=== PATIENT | female | born 1985 | race Caucasian/White ===

== ENCOUNTER → 2024-03-31 | Outpatient (CLI) | payer OTHER, MEDICAID, SELFPAY ==
[2024-03-31 10:00] LABS: Misc Send Out* See Sep Rpt
[2024-03-31 10:44] LABS: Basophils % (Auto) 1 % (0-2.5); Eosinophils % (Auto) 1 % (0-10); Hematocrit 38.9 % (36.0-46.0); Hemoglobin 13.6 g/dL (12.0-16.0); Immature Granulocytes % (Auto) 0 % (0-0); Immature Granulocytes Auto 0.01 Thou/mm3 (0.00-0.00); Lymphocytes # (Auto) 1.3 Thou/mm3 (1.0-4.8); Lymphocytes % (Auto) 23 % (10-50); Mean Corpuscular Hemoglobin 31.2 pg (25.0-35.0); Mean Corpuscular Volume 89 fL (80-100); Monocytes # (Auto) 0.4 Thou/mm3 (0.0-0.8); Monocytes % (Auto) 7 % (0-12); Neutrophils # (Auto) 3.8 Thou/mm3 (1.8-7.7); Neutrophils % (Auto) 69 % (37-80); Nucleated Red Blood Cell % 0 /100 WBC (0); Platelet Count 243 Thou/mm3 (140-440); RDW Standard Deviation 39.4 fL (36.4-46.3); Red Blood Count 4.36 Miln/mm3 (4.00-5.20); White Blood Count 5.6 Thou/mm3 (3.6-11.0)
[2024-03-31 10:53] LABS: Misc Send Out* See Sep Rpt
[2024-03-31 11:26] LABS: Alanine Aminotransferase 23 U/L (10-49); Albumin, Serum 4.6 gm/dL (3.5-5.0); Albumin/Globulin Ratio 1.8 (1.2-2.2); Alkaline Phosphatase 95 U/L (46-116); Anion Gap 5 (7-16); Aspartate Amino Transferase 19 U/L (0-34); BUN/Creatinine Ratio 15 Ratio (12-20); Bilirubin,Total 0.7 mg/dL (0.3-1.2); Blood Urea Nitrogen 12 mg/dL (9-23); C-Reactive Protein < 0.4 mg/dL (0.0-0.9); Calcium 9.5 mg/dL (8.3-10.6); Calcium (Corrected) 9.5 mg/dL (8.5-10.1); Carbon Dioxide 26.9 mMol/L (20.0-31.0); Chloride 107 mMol/L (98-107); Creatine Kinase 53 U/L (34-171); Creatinine (Component) 0.8 mg/dL (0.6-1.3); Globulin 2.6 gm/dL (2.3-3.5); Glucose 81 mg/dL (74-106); Osmolality,Calculated 276 (275-295); Sodium 139 mMol/L (136-145); Total Protein 7.2 gm/dL (5.7-8.2); eGFR > 60 See Note
[2024-03-31 11:36] LABS: Sed Rate (ESR) 4 mm/hr (0-20)
[2024-03-31 18:13] LABS: RA Screen Negative (Negative)
== END | disposition home or self-care (01) ==
LOC: COPL 09:22
PROVIDERS: PCP Family Medicine; Referring Provider Nurse Practitioner; Visit Provider Nurse Practitioner
DX: M35.3 Polymyalgia rheumatica (principal)
CPT/HCPCS: 36415; 80053; 82550; 85025; 85652; 86038; 86140; 86200; 86430

== ENCOUNTER 2024-04-13 20:18 | Inpatient (IN) | payer OTHER, MEDICAID, SELFPAY ==
[2024-04-13 20:18] VITALS: BP 121/73; PULSE 75; RESP 18; TEMP 36.6; O2SAT 99
[2024-04-13 20:22] VITALS: BMI 23.5
--- NOTE | 2024-04-13 20:25 | EDNOTE_ITS ---
ED General RME/HPI General Chief complaint: Abdominal Pain Stated complaint: ABD PAIN Time Seen by Provider: 04/13/24 20:24 Arrival date/time: 04/13/24 20:18 CC: Upper abdominal pain HPI onset at 5 PM with progressive increase in severity band pain across the upper abdomen with penetration straight into the back. 8-9 on a 10 scale not relieved with [id number] Tylenol EMS gives the patient 75 mcg of fentanyl which relieves the pain significantly. The patient is mildly nauseated but has no active vomiting. History of cholecystectomy 2020. Has a history of band pain occurring once in a great while last episode was 2 months ago. Patient's medications include gabapentin Tylenol with codeine and antianxiety medication. Related Data Home Medications ?Medication ?Instructions ?Recorded ?Confirmed acetaminophen 300 mg-codeine 30 mg 1 tab PO BID PRN Pain 04/14/24 04/14/24 tablet acetaminophen 325 mg tablet 325 mg PO QID PRN Pain 04/14/24 04/14/24 buspirone 15 mg tablet 15 mg PO HS 04/14/24 04/14/24 clorazepate dipotassium 15 mg 15 mg PO HS 04/14/24 04/14/24 tablet famotidine 20 mg tablet 20 mg PO QDAY 04/14/24 04/14/24 gabapentin 100 mg capsule 300 mg PO HS 04/14/24 04/14/24 ibuprofen 400 mg tablet 400 mg PO Q4HR PRN Pain 04/14/24 04/14/24 levothyroxine 50 mcg tablet 50 mcg PO QAM 04/14/24 04/14/24 Allergies Allergy/AdvReac Type Severity Reaction Status Date / Time caffeine Allergy Severe Difficulty Verified 11/26/17 04:07 Breathing ergotamine Allergy Severe Difficulty Verified 11/26/17 04:08 Breathing sumatriptan Allergy Severe Difficulty Verified 11/26/17 04:08 Breathing topiramate [From Topamax] Allergy Severe Difficulty Verified 11/26/17 04:07 Breathing Review of Systems Review of Systems Narrative Review of Systems: GEN: No fever, no chills, no weight loss EYES: No discharge, no visual changes, no pain HEENT: No ear pain, no congestion, no sore throat PULM: No shortness of breath, no cough, no congestion CV: No chest pain, no dyspnea on exertion, no palpitations GI: No nausea, no vomiting, no diarrhea, + pain, no constipation : No frequency, no urgency, no dysuria MUSC/SKEL: No joint pain, no back pain SKIN: No rash PSYCH: No hallucinations, no depression HEME/LYMPH: No easy bleeding or bruising tendencies NEURO: No weakness, no headache Past Medical History Past Medical History NEUROLOGIC: Positive Neurological Disorders and Migraine CARDIAC: Negative Cardiac Disorders or Congestive Heart Failure RESPIRATORY: Positive Asthma; Negative Chronic Obstructive Pulmonary Disease (COPD) GASTROINTESTINAL: Negative Gastrointestinal Disorders GENITOURINARY: Positive Genitourinary Disorders (hx uti's); Negative Renal Disease REPRODUCTIVE: Negative Pelvic Inflammatory Disease MUSCULOSKELETAL: Negative Musculoskeletal Disorders ENDOCRINE: Negative Endocrine Disorders, Diabetes Mellitus Type 1 or Diabetes Mellitus Type 2 HEMATOLOGIC: Negative Blood Disorders PSYCHO/SOCIAL: Positive Depression and Anxiety OTHER HISTORY: Positive Chicken Pox; Negative Autoimmune Disease Family History FAMILY HISTORY: Positive Family Psychiatric Problems (mother.father-depression, anxiety.), Family Respiratory Disorders (mother,father, brothers sisters- asthma), Family Cardiac Disorders (mother and father), Family Gastrointestinal Problems (mother, father -ulcers, gallbladders removed.) and Family Surgery (mother-hysterectomy); Negative Family Cancer or Family Anesthesia Reaction Surgical History SURGICAL: Negative Section Social History SMOKING STATUS: Former smoker SECOND HAND EXPOSURE: No ED Exam Narrative Physical exam: [General: Mild discomfort but not in any acute distress Head normocephalic HEENT: Within acceptable limits Neck is supple nontender Chest equal chest rise nontender to palpation Respiratory: Clear to auscultation no wheezes crackles or rubs CV: Rate rhythm is regular no murmurs rubs or clicks Abdomen is soft, mild tenderness in the upper abdomen, no lower abdominal pain. Back: No CVA tenderness no spinous process tenderness from cervical spine thoracic and lumbar spine Skin: Intact no petechiae rash induration ulceration or crepitus Extremities: Moving all extremity against resistance cap refill less than 2 seconds neurosensory intact Neuro: Awake alert oriented x3 Glascow coma 15 no focal deficits] Course Quality Measures none Orders Category Date Time Status COVID-19 Screening Questionnaire NOW Care 04/14/24 01:[address] Screening NOW Care 04/13/24 23:02 Active Decision to Admit X1 Care 04/14/24 01:[address] abdomen pelvis w con Stat Exams 04/13/24 23:02 Completed CBC Stat Lab 04/13/24 20:43 Completed CMP [Comprehensive Metabolic Panel] Stat Lab 04/13/24 21:42 Completed HCG Qualitative,Urine Stat Lab 04/13/24 20:32 Completed LDH (Lactate Dehydrogenase) Stat Lab 04/13/24 21:42 Completed Lipase Stat Lab 04/13/24 21:42 Completed Lipid Panel Stat Lab 04/13/24 21:42 Completed Urinalysis Stat Lab 04/13/24 20:32 Completed Famotidine Inj [Pepcid Inj] Med 04/13/24 21:49 Discontinued 20 mg IVP X1 ONE Lidocaine 2% Viscous [Xylocaine 2% Viscous] Med 04/13/24 20:24 Discontinued 15 ml PO X1 ONE Morphine Inj Med 04/13/24 23:24 Hold 4 mg IVP Q1H PRN Morphine Inj [Morphine Sulf Inj] Med 04/13/24 23:07 Discontinued 4 mg IVP Q1H PRN Ondansetron Inj [Zofran Inj] Med 04/13/24 23:17 Discontinued 2 mg IV X1 ONE Ondansetron Inj [Zofran Inj] Med 04/13/24 23:07 Discontinued 4 mg IV X1 ONE Sodium Chloride 0.9% 1000 ml [Ns] 1,000 ml Med 04/14/24 02:57 Discontinued IV 200 mls/hr mg Hyd/Al Hyd/Bettye Susp [Maalox Susp] Med 04/13/24 20:24 Discontinued 30 ml PO X1 ONE Vital Signs Vital signs: Vital Signs Temperature 97.8 F 04/13/24 20:18 Pulse Rate 75 04/13/24 20:18 Respiratory Rate 18 04/13/24 20:18 Blood Pressure 121/73 04/13/24 20:18 Pulse Oximetry (%) 99 04/13/24 20:18 Oxygen Delivery Method Room Air 04/13/24 20:18 [facility] Patient data External records reviewed:: [facility] previous records and EMS form Clinical information provided by:: patient and EMS Social determinants that could affect healthcare access:: none Patient has the following chronic illnesses:: Chronic leg pain, anxiety How is presenting disease/condition affected by chronic disease/condition?: u neffected by Evaluation data The following diagnostics were reviewed and interpreted by me:: lab results Lab and/or radiology exams considered but not ordered:: CBC shows leukocytosis of 14.5 no anemia thrombocytopenia CMP shows no significant electrolyte imbalances no renal impairment however there is transaminitis with an elevated T. bili Lipase is greater than 2000. Interpretation Summary: Pancreatitis. The patient's case discussed with send care assumed by Dr. Majano. Patient informed of her condition, and she is in agreement for admission for further medical management. Medications Medications considered but not ordered:: None Medication administrations:: Medication Administration History Acetaminophen (Acetaminophen 325 Mg Tablet) 650 mg PO Q6H PRN PRN Reason: PAIN SCALE 1-3 (mild Stop: 05/14/24 03:14 Hydrocodone Bitart/Acetaminophen (Hydrocodone/Apap 10/325 Tab) 1 tab PO Q4H PRN PRN Reason: PAIN SCALE 4-6 (Moderate Stop: 04/19/24 03:14 Last Admin: 04/14/24 06:18 Dose: 1 tab Documented By: DARSHAN Buspirone HCl (Buspirone Hcl 5 Mg Tablet) 15 mg PO QDAY [facility] Stop: 05/14/24 08:59 Last Admin: 04/14/24 09:59 Dose: 15 mg Documented By: JARAD Gabapentin (Gabapentin 100 Mg Capsule) 100 mg PO TID PRN PRN Reason: Leg Pain Stop: 05/14/24 05:59 Sodium Chloride (Ns) 1,000 mls @ 250 mls/hr IV .Q4H MARTIN Stop: 05/14/24 08:38 Ceftriaxone Sodium/Dextrose (Rocephin/D5w 1gm Iv Premix) 50 mls @ 100 mls/hr IV QDAY [facility] Stop: 04/21/24 11:09 Levothyroxine Sodium (Levothyroxine Sodium 25 Mcg Tablet) 50 mcg PO ACBR MARTIN Stop: 05/14/24 05:59 Last Admin: 04/14/24 06:18 Dose: 50 mcg Documented By: DARSHAN Morphine Sulfate (Morphine Sulf Inj 10 Mg/Ml Vial) 4 mg IVP Q1H PRN PRN Reason: PAIN Last Admin: 04/13/24 23:40 Dose: 4 mg Documented By: CB Morphine Sulfate (Morphine Sulf Inj 10 Mg/Ml Vial) 1 mg IVP Q4HR PRN PRN Reason: PAIN SCALE 7-10 (Severe Stop: 04/19/24 03:14 Last Admin: 04/14/24 10:52 Dose: 1 mg Documented By: Admin: 04/14/24 04:35 Dose: 1 mg Documented By: DARSHAN Ondansetron HCl (Ondansetron Inj 2 Mg/Ml Inj 2 Ml) 4 mg IV Q6H PRN; Protocol PRN Reason: NAUSEA OR VOMITING Stop: 05/14/24 03:14 Last Admin: 04/14/24 04:35 Dose: 4 mg Documented By: DARSHAN Sennosides (Senna Tablet) 1 tab PO QDAY PRN; Protocol PRN Reason: constipation Stop: 05/14/24 03:14 Discontinued Medications Al Hydrox/Mg Hydrox/Simethicone (Mg Hyd/Al Hyd/Bettye (Maalox Reg) Susp 30 Ml Udc) 30 ml PO X1 ONE Stop: 04/13/24 20:25 Last Admin: 04/13/24 20:39 Dose: 30 ml Documented By: KG Famotidine (Famotidine Inj 10 Mg/Ml Vial 2 Ml) 20 mg IVP X1 ONE Stop: 04/13/24 21:50 Last Admin: 04/13/24 21:59 Dose: 20 mg Documented By: DARSHAN Gabapentin (Gabapentin 100 Mg Capsule) 100 mg PO TID MARTIN Stop: 05/14/24 05:59 Sodium Chloride (Ns) 1,000 mls @ 200 mls/hr IV .Q5H ONE Stop: 04/14/24 07:56 Last Admin: 04/14/24 03:19 Dose: 200 mls/hr Documented By: DARSHAN Sodium Chloride (Ns) 1,000 mls @ 999 mls/hr IV .Q1H1M ONE Stop: 04/14/24 09:39 Last Admin: 04/14/24 09:59 Dose: 999 mls/hr Documented By: JARAD Sodium Chloride (Ns) 500 mls @ 999 mls/hr IV .Q31M ONE Stop: 04/14/24 09:10 Lidocaine HCl (Lidocaine Viscous 2% 15 Ml Udc) 15 ml PO X1 ONE Stop: 04/13/24 20:25 Last Admin: 04/13/24 20:39 Dose: 15 ml Documented By: KG Morphine Sulfate (Morphine Sulf Inj 4 Mg/Ml Vial) 4 mg IVP Q1H PRN PRN Reason: PAIN Ondansetron HCl (Ondansetron Inj 2 Mg/Ml Inj 2 Ml) 4 mg IV X1 ONE; Protocol Stop: 04/13/24 23:08 Last Admin: 04/13/24 23:18 Dose: Not Given Documented By: DARSHAN Non-Admin Reason: Duplicate Medication on eMAR Ondansetron HCl (Ondansetron Inj 2 Mg/Ml Inj 2 Ml) 2 mg IV X1 ONE; Protocol Stop: 04/13/24 23:18 Last Admin: 04/13/24 23:40 Dose: 2 mg Documented By: DARSHAN Potassium Chloride (Potassium Chloride 20 Meq Tabcr) 40 meq PO X1 ONE Stop: 04/14/24 04:18 Last Admin: 04/14/24 04:30 Dose: 40 meq Documented By: DARSHAN None Consultations Consultation(s) initiated? (list below): No Diagnosis Differential Diagnosis ED Complaint MDM: Pancreatitis ascending cholangitis Most likely diagnosis given after review of the tests above:: Pancreatitis Admission Indicated Admission indicated?: indicated Explain why admission is indicated or not indicated:: Quires further medical management Admission Request Was there a request for admission?: No Disposition Plan Disposition Plan: Admit Medical Decision Making Differential Diagnosis Differential Diagnosis: Pancreatitis ascending cholangitis Lab Data 04/14/24 04:35 04/14/24 04:35 Labs: Lab Results 04/13/24 04/13/24 04/13/24 Range/Units 20:32 20:43 21:42 WBC 14.5 H (3.6-11.0) Thou/mm3 RBC 4.69 (4.00-5.20) Miln/mm3 Hgb 14.6 (12.0-16.0) g/dL Hct 41.2 (36.0-46.0) % MCV 88 (80-100) fL MCH 31.1 (25.0-35.0) pg MCHC 35.4 (31.0-37.0) g/dl RDW Std Deviation 39.0 (36.4-46.3) fL Plt Count 201 D (140-440) Thou/mm3 Neut % (Auto) 85 H (37-80) % Lymph % (Auto) 7 L (10-50) % [place] % (Auto) 7 (0-12) % Eos % (Auto) 0 (0-10) % Baso % (Auto) 0 (0-2.5) % Neut # (Auto) 12.3 H (1.8-7.7) Thou/mm3 Lymph # (Auto) 1.0 (1.0-4.8) Thou/mm3 [place] # (Auto) 1.1 H (0.0-0.8) Thou/mm3 Eos # (Auto) 0.0 (0.0-0.5) Thou/mm3 Baso # (Auto) 0.0 (0.0-0.2) Thou/mm3 Immature Gran # (Auto) 0.04 H (0.00-0.00) Thou/mm3 Absolute Nucleated RBC 0.00 (0.00-0.00) Thou/mm3 Immature Gran % 0 (0-0) % Nucleated RBC % 0 (0) /100 WBC Sodium 138 (136-145) mMol/L Potassium 3.5 (3.4-5.1) mMol/L Chloride 106 (98-107) mMol/L Carbon Dioxide 24.7 (20.0-31.0) mMol/L Anion Gap 7 (7-16) BUN 9 (9-23) mg/dL Creatinine 0.7 (0.6-1.3) mg/dL Estim Creat Clear Calc 106.0 (>60) mL/min eGFR > 60 (60 - ) See Note BUN/Creatinine Ratio 13 (12-20) Ratio Glucose 102 (74-106) mg/dL Calculated Osmolality 274 L (275-295) Calcium 10.1 (8.3-10.6) mg/dL Corrected Calcium 10.1 (8.5-10.1) mg/dL Total Bilirubin 1.6 H (0.3-1.2) mg/dL AST 328 H (0-34) U/L ALT 170 H (10-49) U/L Alkaline Phosphatase 144 H (46-116) U/L Lactate Dehydrogenase 401 H (120-246) U/L Total Protein 7.5 (5.7-8.2) gm/dL Albumin 4.5 (3.5-5.0) gm/dL Globulin 3.0 (2.3-3.5) gm/dL Albumin/Globulin Ratio 1.5 (1.2-2.2) Triglycerides 95 (30-150) mg/dL Cholesterol 146 (132-200) mg/dL LDL Cholesterol, Calc 80 (0-130) mg/dL HDL Cholesterol 47 (40-60) mg/dL Cholesterol/HDL Ratio 3.1 L (3.7-5.6) RATIO Lipase 2079 H* (12-53) U/L Ur Collection Type Clean Catch Urine Color Lt-Yellow (Lt Yel-Yel) Urine Clarity Clear (Clear/Hazy) Urine pH 7.5 H (5.0-7.0) Ur Specific [place] 1.009 (1.001-1.035) Urine Protein Negative (Neg - Trace) Urine Glucose (UA) Negative (Negative) Urine Ketones Negative (Negative) Urine Blood Trace (Negative) Urine Nitrite Negative (Negative) Urine Bilirubin Negative (Negative) Urine Urobilinogen (Auto) Negative (0.0-1.0) mg/dL Ur Leukocyte Esterase Positive (Negative) Urine RBC 3 (0-3) /hpf Urine WBC 15 H (0-5) /hpf Ur Squamous Epith Cells < 1 (0-5) /hpf Urine Bacteria Rare (None) Urine HCG, Qual Negative Discharge Plan Plan Patient Disposition: Admit Acute Care w/in Hospital Problem List Clinical Impression: Pancreatitis
[2024-04-13] MEDS: MG HYD/AL HYD/SIME (Maalox Reg) SUSP 30 ML UDC PO (20:39)
[2024-04-13] MEDS: LIDOCAINE VISCOUS 2% 15 ML UDC PO (20:39)
[2024-04-13 20:53] LABS: Collection Type, Urine Clean Catch
[2024-04-13 20:58] LABS: Basophils % (Auto) 0 % (0-2.5); Eosinophils % (Auto) 0 % (0-10); Hematocrit 41.2 % (36.0-46.0); Hemoglobin 14.6 g/dL (12.0-16.0); Immature Granulocytes % (Auto) 0 % (0-0); Immature Granulocytes Auto 0.04 Thou/mm3 (0.00-0.00); Lymphocytes % (Auto) 7 % (10-50); Mean Corpuscular HGB Conc 35.4 g/dl (31.0-37.0); Mean Corpuscular Hemoglobin 31.1 pg (25.0-35.0); Mean Corpuscular Volume 88 fL (80-100); Monocytes # (Auto) 1.1 Thou/mm3 (0.0-0.8); Monocytes % (Auto) 7 % (0-12); Neutrophils # (Auto) 12.3 Thou/mm3 (1.8-7.7); Neutrophils % (Auto) 85 % (37-80); Nucleated Red Blood Cell % 0 /100 WBC (0); Platelet Count 201 Thou/mm3 (140-440); Red Blood Count 4.69 Miln/mm3 (4.00-5.20); White Blood Count 14.5 Thou/mm3 (3.6-11.0)
[2024-04-13 21:02] VITALS: BP 124/78; PULSE 78; RESP 18; O2SAT 100
[2024-04-13 21:05] LABS: Bacteria,Urine Rare; Bilirubin,Urine Negative (Negative); Blood,Urine Trace (Negative); Clarity,Urine Clear (Clear/Hazy); Color,Urine Lt-Yellow (Lt Yel-Yel); Glucose, Urine Negative (Negative); HCG Qualitative,Urine Negative; Ketones,Urine Negative (Negative); Leukocyte Esterase,Urine Positive (Negative); Nitrite,Urine Negative (Negative); PH,Urine 7.5 (5.0-7.0); Protein,Urine Negative (Neg - Trace); RBC,Urine 3 /hpf (0-3); Specific Gravity,Urine 1.009 (1.001-1.035); Squamous Epithelial Cell,Urine < 1 /hpf (0-5); Urobilinogen,Urine Negative mg/dL (0.0-1.0); WBC,Urine 15 /hpf (0-5)
[2024-04-13] MEDS: FAMOTIDINE INJ 10 MG/ML VIAL 2 ML 20 MG IVP (21:59)
[2024-04-13 22:33] LABS: Alanine Aminotransferase 170 U/L (10-49); Albumin, Serum 4.5 gm/dL (3.5-5.0); Albumin/Globulin Ratio 1.5 (1.2-2.2); Alkaline Phosphatase 144 U/L (46-116); Anion Gap 7 (7-16); Aspartate Amino Transferase 328 U/L (0-34); BUN/Creatinine Ratio 13 Ratio (12-20); Bilirubin,Total 1.6 mg/dL (0.3-1.2); Blood Urea Nitrogen 9 mg/dL (9-23); Calcium 10.1 mg/dL (8.3-10.6); Calcium (Corrected) 10.1 mg/dL (8.5-10.1); Carbon Dioxide 24.7 mMol/L (20.0-31.0); Chloride 106 mMol/L (98-107); Creatinine (Component) 0.7 mg/dL (0.6-1.3); Glucose 102 mg/dL (74-106); Lipase 2079 U/L (12-53); Osmolality,Calculated 274 (275-295); Potassium 3.5 mMol/L (3.4-5.1); Sodium 138 mMol/L (136-145); Total Protein 7.5 gm/dL (5.7-8.2); eGFR > 60 See Note
--- NOTE | 2024-04-13 23:02 | XR_ITS ---
Examination: CT abdomen with intravenous contrast CT pelvis with intravenous contrast 2-D coronal reconstructions 2-D sagittal reconstructions Date and time of exam: April 13, 2024 11:21 PM Indications: Upper abdominal pain today CTDI: vol (mGy) 16.40 DLP: (mGycm) 675 Technique: Multiple axial sections of the abdomen and pelvis have been obtained. 64 slice high-resolution scanner used. 3 mm axial sections have been obtained, post intravenous injection 60 cc Isovue-370 2-D sagittal, coronal reconstructions obtained. Low dose protocols were performed. One or more of the following dose reduction techniques were used; automated exposure control, adjustment of the mA and/or KV according to patient size, use of iterative reconstruction technique. Findings: No focal liver splenic lesions Tiny air droplet in the gallbladder, seen with incompetent sphincter 20 mm fat-containing umbilical hernia No renal or ureteral calculi, no hydronephrosis Aorta normal size No common bile duct stones Normal appendix No bowel obstruction No diverticulitis 20 mm left ovarian follicular cyst Anteverted uterus Urinary bladder intact Osseous structures intact Impression: No renal or ureteral calculi, no hydronephrosis Normal appendix 20 mm left ovarian follicular cyst
--- NOTE | 2024-04-13 23:21 | EDNOTE_ITS ---
Emergency Room Addendum Addendum Narrative: 2300: Care assumed from Ar Rahman NP. Past medical, surgical, social and family history reviewed. Vitals and home medications reviewed. Results and treatment plan discussed. I will assume the care of the patient at this time and will follow the patient, pending CT abdomen pelvis. Please refer to the emergency department record for history and examination from initial visit. Discussed case with [Dr. Whitney, attending Dr. Prieto] from Hospitalist service regarding admission. Discussed patients ED course, exam findings, labs, and radiology results. The Hospitalist [agrees] to accept the patient for admission. RADIOLOGY RESULTS: [facility] Report Signed Patient: SASHA GARZA. Record#: [id number] Birthdate: 1985 Age/Sex: 38 / F Location: [facility] Attending Dr: Ordering Physician: Ar Rahman NP Date of Service: 04/13/24 Procedure(s): CT abdomen pelvis w con Accession Number(s): [id number] cc: Ar Rahman NP; Shahzad Hernandez MD~ Examination: CT abdomen with intravenous contrast CT pelvis with intravenous contrast 2-D coronal reconstructions 2-D sagittal reconstructions Date and time of exam: April 13, 2024 11:21 PM Indications: Upper abdominal pain today CTDI: vol (mGy) 16.40 DLP: (mGycm) 675 Technique: Multiple axial sections of the abdomen and pelvis have been obtained. 64 slice high-resolution scanner used. 3 mm axial sections have been obtained, post intravenous injection 60 cc Isovue-370 2-D sagittal, coronal reconstructions obtained. Low dose protocols were performed. One or more of the following dose reduction techniques were used; automated exposure control, adjustment of the mA and/or KV according to patient size, use of iterative reconstruction technique. Findings: No focal liver splenic lesions Tiny air droplet in the gallbladder, seen with incompetent sphincter 20 mm fat-containing umbilical hernia No renal or ureteral calculi, no hydronephrosis Aorta normal size No common bile duct stones Normal appendix No bowel obstruction No diverticulitis 20 mm left ovarian follicular cyst Anteverted uterus Urinary bladder intact Osseous structures intact Impression: No renal or ureteral calculi, no hydronephrosis Normal appendix 20 mm left ovarian follicular cyst Dictated By: Shahzad Hernandez MD Signed By: <Electronically signed by Shahzad Hernandez MD in [place]> 04/14/24 0001
[2024-04-13 23:39] VITALS: BP 141/83; PULSE 72; RESP 15; TEMP 36.8; O2SAT 100
[2024-04-13] MEDS: ONDANSETRON INJ 2 MG/ML INJ 2 ML IV (23:40)
[2024-04-13] MEDS: MORPHINE SULF INJ 10 MG/ML VIAL 4 MG IVP (23:40)
[2024-04-14] VITALS (8 sets, daily range): BP systolic 101–136; BP diastolic 55–86; PULSE 66–89; RESP 13–19; TEMP 36.2–37.1; O2SAT 99–100; BMI 23.5
[2024-04-14 01:00] LABS: Cardiac Risk Estimate 3.1 RATIO (3.7-5.6); Cholesterol 146 mg/dL (132-200); HDL Cholesterol 47 mg/dL (40-60); LDL Cholesterol,Calculated 80 mg/dL (0-130); Triglycerides 95 mg/dL (30-150)
[2024-04-14 02:47] LABS: LDH (Lactate Dehydrogenase) 401 U/L (120-246)
[2024-04-14] MEDS: SODIUM CHLORIDE 0.9% 1000 ML 1,000 ML 200 ML IV (03:19)
--- NOTE | 2024-04-14 03:28 | ESHP_ITS ---
Documentation for date of: 04/14/24 HPI History of Present Illness Chief complaint: Abdominal Pain History of present illness: 38-year-old female with past medical history of general anxiety disorder, depression, hypothyroidism, sciatica-like pain presenting to the ED on 04/14 with acute abdominal pain which started around 5 PM on 04/13. Patient states that she had her gallbladder removed in 2020 after she developed reoccurring episodes of gallstones. Patient states that throughout the years she has had on and off pain which has lasted 30 seconds with no discernible cause. Patient states that at 5 PM this time, the the pain was so severe that she says it is worse than childbearing pain. The pain was described as a stabbing sensation which traveled from the anterior abdomen to the back and did not radiate anywhere else. Patient denies having any concerning cardiac symptoms such as chest pain/tightness, palpitations, shortness of breath, PND, orthopnea or lower extremity swelling. Patient did feel nauseous during this episode; however, denies having any vomiting, melena, hematochezia, hematemesis. Patient denies drinking alcohol currently; used to drink 10 years ago. Patient also used to smoke 1 and half pack of cigarettes for 5 years but quit before her first in 2018. Patient also used to smoke marijuana heavily but also quit sometime around 2017. Patient has generalized anxiety disorder/depression and takes clorazepate 15 mg p.o. at bedtime and BuSpar 15 mg p.o. daily. Patient also takes gabapentin for lower extremity numbness/pain (sciatica-like pain); she states that she had an appointment with a neurologist in [place] on 04/15. 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 ROS: All 12 systems assessed and the patient has on the side otherwise listed in HPI In the ED, patient presented normotensive, heart rate 75, respiratory rate 18, afebrile satting 99 on room air. Pertinent lab findings include WBC of 14.5, potassium 3.5, calcium 10.1, T. bili 1.6, AST 328, ALT 170, alk phosphatase 144, LDH 401, lipase 2079, urine cultures negative for any urinary tract infection. CT abdomen pelvis showed tiny air droplets in the gallbladder, 20 mm fat- containing umbilical hernia, 20 mm left ovarian follicular cyst but no CBD stone, no renal or ureteric calculi or hydronephrosis and normal appendix. Patient will be admitted for acute pancreatitis, meeting 2 points on [place]'s criteria; be treated with IV fluids and pain management and diet will be advanced as tolerated. Will continue monitor liver function to assess for possible gallstone retained in the CBD Exam Vital Signs Temp Pulse Resp BP Pulse Ox O2 Del Method 98.2 F 76 14 123/80 100 Room Air 04/14/24 02:58 04/14/24 02:58 04/14/24 02:58 04/14/24 02:58 04/14/24 02:58 04/14/24 02:58 Narrative Exam Physical Exam: GENERAL: Awake, answering questions appropriately, scratching neck area which red/blotched HEENT: NC/AT. Moist mucosa. PERRLA/EOMI. CARDIO: Heart RRR, no obvious murmurs, no JVD. PULM: No coughing or visible SOB. Lungs CTA B/L. GI: Abdomen soft, tenderness to palpation on epigastric and RUQ region. No rebound tenderness or guarding. Borborygmi apparent SKIN/MSK/EXT: No wounds/discoloration/rashes/edema/amputations noted. +Pedal pulses present B/L. NEURO: Oriented x3, Moves extremities x4, no focal neurological deficits Results: Labs 04/13/24 20:43 04/13/24 21:42 Labs: Short CBC 04/13/24 Range/Units 20:43 WBC 14.5 H (3.6-11.0) Thou/mm3 Hgb 14.6 (12.0-16.0) g/dL Hct 41.2 (36.0-46.0) % Plt Count 201 D (140-440) Thou/mm3 BMP 04/13/24 21:42 Sodium 138 Potassium 3.5 Chloride 106 Carbon Dioxide 24.7 BUN 9 Creatinine 0.7 Glucose 102 Calcium 10.1 Liver Function 04/13/24 Range/Units 21:42 Total Bilirubin 1.6 H (0.3-1.2) mg/dL AST 328 H (0-34) U/L ALT 170 H (10-49) U/L Alkaline Phosphatase 144 H (46-116) U/L Albumin 4.5 (3.5-5.0) gm/dL Urine 04/13/24 Range/Units 20:32 Urine Color Lt-Yellow (Lt Yel-Yel) Urine Clarity Clear (Clear/Hazy) Urine pH 7.5 H (5.0-7.0) Ur Specific [place] 1.009 (1.001-1.035) Urine Protein Negative (Neg - Trace) Urine Glucose (UA) Negative (Negative) Quality Measures Quality Measures VTE prophylaxis Medications Home Medications and Allergies Home Medications ?Medication ?Instructions ?Recorded ?Confirmed ?Type prenat.vits,geovany,frk-iwaj-[id number] 1 tab PO QDAY 11/26/17 11/26/17 History ( Vitamin tablet) Allergies Allergy/AdvReac Type Severity Reaction Status Date / Time caffeine Allergy Severe Difficulty Verified 11/26/17 04:07 Breathing ergotamine Allergy Severe Difficulty Verified 11/26/17 04:08 Breathing sumatriptan Allergy Severe Difficulty Verified 11/26/17 04:08 Breathing topiramate [From Topamax] Allergy Severe Difficulty Verified 11/26/17 04:07 Breathing Visit Medications Acetaminophen (Acetaminophen 325 Mg Tablet) 650 mg PO Q6H PRN PRN Reason: PAIN SCALE 1-3 (mild Stop: 05/14/24 03:14 Hydrocodone Bitart/Acetaminophen (Hydrocodone/Apap 10/325 Tab) 1 tab PO Q4H PRN PRN Reason: PAIN SCALE 4-6 (Moderate Stop: 04/19/24 03:14 Buspirone HCl (Buspirone Hcl 5 Mg Tablet) 15 mg PO QDAY MARTIN Stop: 05/14/24 08:59 Gabapentin (Gabapentin 100 Mg Capsule) 100 mg PO TID MARTIN Stop: 05/14/24 05:59 Sodium Chloride (Ns) 1,000 mls @ 200 mls/hr IV .Q5H ONE Stop: 04/14/24 07:56 Last Admin: 04/14/24 03:19 Dose: 200 mls/hr Levothyroxine Sodium (Levothyroxine Sodium 25 Mcg Tablet) 50 mcg PO QDAY MARTIN Stop: 05/14/24 07:59 Morphine Sulfate (Morphine Sulf Inj 10 Mg/Ml Vial) 4 mg IVP Q1H PRN PRN Reason: PAIN Last Admin: 04/13/24 23:40 Dose: 4 mg Morphine Sulfate (Morphine Sulf Inj 10 Mg/Ml Vial) 1 mg IVP Q4HR PRN PRN Reason: PAIN SCALE 7-10 (Severe Stop: 04/19/24 03:14 Ondansetron HCl (Ondansetron Inj 2 Mg/Ml Inj 2 Ml) 4 mg IV Q6H PRN; Protocol PRN Reason: NAUSEA OR VOMITING Stop: 05/14/24 03:14 Sennosides (Senna Tablet) 1 tab PO QDAY PRN; Protocol PRN Reason: constipation Stop: 05/14/24 03:14 Discontinued Medications Al Hydrox/Mg Hydrox/Simethicone (Mg Hyd/Al Hyd/Bettye (Maalox Reg) Susp 30 Ml Udc) 30 ml PO X1 ONE Stop: 04/13/24 20:25 Last Admin: 04/13/24 20:39 Dose: 30 ml Famotidine (Famotidine Inj 10 Mg/Ml Vial 2 Ml) 20 mg IVP X1 ONE Stop: 04/13/24 21:50 Last Admin: 04/13/24 21:59 Dose: 20 mg Lidocaine HCl (Lidocaine Viscous 2% 15 Ml Udc) 15 ml PO X1 ONE Stop: 04/13/24 20:25 Last Admin: 04/13/24 20:39 Dose: 15 ml Morphine Sulfate (Morphine Sulf Inj 4 Mg/Ml Vial) 4 mg IVP Q1H PRN PRN Reason: PAIN Ondansetron HCl (Ondansetron Inj 2 Mg/Ml Inj 2 Ml) 4 mg IV X1 ONE; Protocol Stop: 04/13/24 23:08 Last Admin: 04/13/24 23:18 Dose: Not Given Ondansetron HCl (Ondansetron Inj 2 Mg/Ml Inj 2 Ml) 2 mg IV X1 ONE; Protocol Stop: 04/13/24 23:18 Last Admin: 04/13/24 23:40 Dose: 2 mg Assessment & Plan Plan 38-year-old female with past medical history of general anxiety disorder, depression, hypothyroidism, sciatica-like pain presenting with acute abdominal pain which started around 5 PM on 04/13 will be admitted for acute pancreatitis, meeting 2 points on [place]'s criteria; be treated with IV fluids and pain management and diet will be advanced as tolerated. Will continue monitor liver function to assess for possible gallstone retained in the CBD #Acute pancreatitis #Leukocytosis #Elevated liver enzymes Differentials include nonspecific/idiopathic, retained gallstone pancreatitis versus alcohol induced, trauma, triglyceride (all less likely) Patient presenting with 2/3 criteria for acute pancreatitis; pathopneumonic pain and severely elevated lipase Patient has been having on and off pain for several years s/p gallbladder removed in 2020 but has not experienced any pain such as when she is presenting with Patient denies drinking alcohol for over 10 years, denies having any trauma to the area and denies pain with certain foods Lipase greater than 2078 Lipid panel ordered shows triglycerides 95, cholesterol 146, LDL 80, HDL 47 Patient also has elevated liver enzymes CT abdomen pelvis does not show signs of acute pancreatitis and there are apparently no common bile duct stones seen [place] Criteria 2 (AST >250 and LDH >350); not severe pancreatitis Plan: IV NS at 200 mL/h Multimodal analgesia N.p.o. but advance as tolerated Repeat liver panel; if remain elevated consider getting MRCP to rule out retained stone in CBD #Electrolyte abnormalities Replete as needed #20 mm fat-containing umbilical hernia #20 mm left ovarian follicular cyst As seen on CT abdomen pelvis Plan: Repeat as needed #Generalized anxiety/depression #Hypothyroidism #Sciatic Pain/Neuralgia Plan: Restart home medications Did not restart clorazepate as it is not in the formulary Hospital Management: Lines: PIV Bowel: Senna Diet: N.p.o. will advance as tolerated GI prophylaxis: Not needed at this time DVT prophylaxis: SCDs Dispo: Med telemetry, IV fluids for acute pancreatitis Code: Full Patient seen and examined with attending Dr. Martin and senior resident Dr. Devonte Strickland, PGY-1 Attending Provider Attestation/Addendum 38-year-old female was in the ER complaining of epigastric pain without radiation. The patient was seen in the ER. She was diagnosed with acute pancreatitis with lipase over 1999. She denies alcohol intake. She has no trauma. She takes medications including gabapentin, BuSpar, Tylenol with codeine, levothyroxine. She has no new medication. She had her gallbladder taken out. Her alkaline phosphatase is 144 ALT 170 AST is 328. Calcium is 10.1 CO2 is 24. Her hemoglobin is 14.6, platelet count is 201,000. The patient will be admitted for acute pancreatitis
[2024-04-14] MEDS: POTASSIUM CHLORIDE 20 mEq TABCR 40 MEQ PO (04:30)
[2024-04-14] MEDS: MORPHINE SULF INJ 10 MG/ML VIAL IVP ×3 (04:35→16:28)
[2024-04-14] MEDS: ONDANSETRON INJ 2 MG/ML INJ 2 ML 4 MG IV ×2 (04:35→16:36)
[2024-04-14 05:04] LABS: Basophils % (Auto) 0 % (0-2.5); Eosinophils # (Auto) 0.1 Thou/mm3 (0.0-0.5); Eosinophils % (Auto) 1 % (0-10); Hematocrit 37.9 % (36.0-46.0); Hemoglobin 13.5 g/dL (12.0-16.0); Immature Granulocytes % (Auto) 0 % (0-0); Immature Granulocytes Auto 0.01 Thou/mm3 (0.00-0.00); Lymphocytes # (Auto) 1.5 Thou/mm3 (1.0-4.8); Lymphocytes % (Auto) 22 % (10-50); Mean Corpuscular HGB Conc 35.6 g/dl (31.0-37.0); Mean Corpuscular Volume 87 fL (80-100); Monocytes # (Auto) 0.6 Thou/mm3 (0.0-0.8); Monocytes % (Auto) 10 % (0-12); Neutrophils # (Auto) 4.5 Thou/mm3 (1.8-7.7); Neutrophils % (Auto) 67 % (37-80); Nucleated Red Blood Cell % 0 /100 WBC (0); Platelet Count 229 Thou/mm3 (140-440); RDW Standard Deviation 38.9 fL (36.4-46.3); Red Blood Count 4.36 Miln/mm3 (4.00-5.20); White Blood Count 6.8 Thou/mm3 (3.6-11.0)
[2024-04-14 05:30] LABS: Alanine Aminotransferase 273 U/L (10-49); Albumin, Serum 4.6 gm/dL (3.5-5.0); Albumin/Globulin Ratio 1.8 (1.2-2.2); Alkaline Phosphatase 149 U/L (46-116); Anion Gap 7 (7-16); Aspartate Amino Transferase 344 U/L (0-34); BUN/Creatinine Ratio 10 Ratio (12-20); Bilirubin,Total 1.8 mg/dL (0.3-1.2); Blood Urea Nitrogen 8 mg/dL (9-23); Calcium 9.2 mg/dL (8.3-10.6); Calcium (Corrected) 9.2 mg/dL (8.5-10.1); Carbon Dioxide 25.6 mMol/L (20.0-31.0); Chloride 105 mMol/L (98-107); Creatinine (Component) 0.8 mg/dL (0.6-1.3); Estimated Creatinine Clearance 92.7 mL/min (>60); Globulin 2.6 gm/dL (2.3-3.5); Glucose 82 mg/dL (74-106); Magnesium 2.2 mg/dL (1.6-2.6); Osmolality,Calculated 272 (275-295); Phosphorous 3.6 mg/dL (2.4-5.1); Potassium 3.4 mMol/L (3.4-5.1); Sodium 138 mMol/L (136-145); Thyroid Stimulating Hormone 3.59 uIU/mL (0.55-4.78); Total Protein 7.2 gm/dL (5.7-8.2); eGFR > 60 See Note
[2024-04-14] MEDS: LEVOTHYROXINE SODIUM 25 MCG TABLET 50 MCG PO (06:18)
[2024-04-14] MEDS: HYDROcodone/APAP 10/325 TAB PO (06:18)
--- NOTE | 2024-04-14 08:38 | XR_ITS ---
Examination: Abdomen sonogram, complete Date and time of exam: April 14, 2024 0855 hours INDICATIONS: Upper abdominal pain beginning one week ago, diagnosis pancreatitis 2 days ago. Technique: Multiple real-time grayscale transabdominal sonographic images of the abdomen have been obtained. Findings: Absent gallbladder Common bile duct 0.4 cm no stones Pancreatic head 2.0 cm Aorta not enlarged Liver 14.2 cm fatty infiltration no focal liver lesions Normal hepatopedal portal venous flow Patent IVC Right kidney 10.1 x 4.8 x 5.8 cm cortex 1.0 cm Left kidney 11.0 x 4.4 x 6.3 cm cortex 1.2 cm Mild left renal parenchymal scar formation No hydronephrosis Spleen 11.9 cm IMPRESSION: Absent gallbladder Normal common bile duct Pancreas is not enlarged Fatty liver
--- NOTE | 2024-04-14 08:49 | PC.NURSE ---
Pt arrived to unit via gurney from ED @ 0805. Placed in bed for comfort. IV to LAC patent running fluids at this time. Pt A&Ox3 sble to make needs know. States pain is a 6/10 and feels slightly nauseated. MD at bedside.
--- NOTE | 2024-04-14 08:54 | PC.NURSE ---
pt to US Via WC
--- NOTE | 2024-04-14 09:37 | PC.NURSE ---
Pt returned to room from US via WC
[2024-04-14] MEDS: BusPIRone HCL 5 MG TABLET 15 MG PO (09:59)
[2024-04-14] MEDS: SODIUM CHLORIDE 0.9% 1000 ML 1,000 ML 999 ML IV (09:59)
--- NOTE | 2024-04-14 11:07 | PC.NURSE ---
pt stated she would like her Arnoldo Menezes as point of contact and emergency contact phone # [phone]
[2024-04-14] MEDS: FAMOTIDINE 20 MG TABLET PO (11:34)
[2024-04-14] MEDS: SODIUM CHLORIDE 0.9% 500 ML 500 ML 999 ML IV (11:34)
[2024-04-14] MEDS: cefTRIAXone/D5w 1gm IV premix 50 ML IV (12:04)
[2024-04-14] MEDS: RINGERS LACTATED 1000 ML 1,000 ML 999 ML IV (12:39)
[2024-04-14] MEDS: SODIUM CHLORIDE 0.9% 1000 ML 1,000 ML 250 ML IV ×3 (13:56→22:27)
--- NOTE | 2024-04-14 14:31 | ESPR_ITS ---
<Statement entered by Dionisio Pickering MD - 04/14/24 18:48> Patient was seen and examined by me personally. I agree with most of the assessment and plan as discussed with the corporate development intern physician, and my attending, Dr. Patton. Patient continues to have abdominal pain. Attempted early feeding with CLD (broth) and juice, as patient was feeling better and wanted to try, however had instant severe abdominal pain. Continuing IV fluids and will reeval early refeeding on 04/15. UA was dirty and patient endorsed increasing urinary frequency as well as suprapubic tenderness, therefore started rocephin. LFTs elevated. Abd US significant for fatty liver. Acute hepatitis panel was negative. F/U SANGEETA, ceruloplasmin. Patient may need further work up with GI outpatient. Dionisio Pickering MD, PGY-3 Documentation for date of: 04/14/24 Subjective Subjective Interval history: No acute overnight events. Patient has been n.p.o. Complaining of 6 out of 10 abdominal pain and nausea. Denies fever, chills, headaches, chest pain, sob, cough, or urinary symptoms. Exam Vital Signs Temp Pulse Resp BP Pulse Ox O2 Del Method 97.1 F 66 17 113/77 100 Room Air 04/14/24 12:00 04/14/24 12:00 04/14/24 12:00 04/14/24 12:00 04/14/24 12:04/14/24 12:00 Narrative Exam GENERAL: Normal appearing adult female, in mild distress due to pain HEENT: NCAT.?ROMARIO. Oral mucosa is moist. Patent Nares NECK: Supple, nontender, no thyromegaly, no meningismus, no JVD, no step offs CHEST: Symmetrical, atraumatic, and with equal expansion, Nontender on palpation no deformity and no crepitus. CARDIOVASCULAR: RRR, no m/g/r LUNGS: CTAB, no w/r/r. Symmetrical chest rise. No intercostal subcostal retraction. ABDOMEN: Soft, flat, mildly tender to palpation diffusely. No guarding/rebound tenderness/masses. +BS EXTREMITIES: Nontender.? No edema/cyanosis.?Moves all 4 extremities well, with full ROM and good CSM. SKIN: Warm and dry, no jaundice/rashes. MSK: No lumbar or midline, no CVA, no paraspinal muscle spasm or tenderness. NEURO: FREY x4, CN II-XII grossly intact.?No focal neurologic deficits. PSYCHIATRIC: Normal mood and affect, cooperative, no SI or HI or hallucinations. Objective Labs 04/15/24 05:10 04/15/24 05:10 Labs: Laboratory Results - last 24 hr 04/13/24 04/13/24 04/13/24 20:32 20:43 21:42 WBC 14.5 H RBC 4.69 Hgb 14.6 Hct 41.2 MCV 88 MCH 31.1 MCHC 35.4 RDW Std Deviation 39.0 Plt Count 201 D Neut % (Auto) 85 H Lymph % (Auto) 7 L Sterling % (Auto) 7 Eos % (Auto) 0 Baso % (Auto) 0 Neut # (Auto) 12.3 H Lymph # (Auto) 1.0 Sterling # (Auto) 1.1 H Eos # (Auto) 0.0 Baso # (Auto) 0.0 Immature Gran # (Auto) 0.04 H Absolute Nucleated RBC 0.00 Immature Gran % 0 Nucleated RBC % 0 Sodium 138 Potassium 3.5 Chloride 106 Carbon Dioxide 24.7 Anion Gap 7 BUN 9 Creatinine 0.7 Estim Creat Clear Calc 106.0 eGFR > 60 BUN/Creatinine Ratio 13 Glucose 102 Calculated Osmolality 274 L Calcium 10.1 Corrected Calcium 10.1 Phosphorus Magnesium Total Bilirubin 1.6 H AST 328 H ALT 170 H Alkaline Phosphatase 144 H Lactate Dehydrogenase 401 H Total Protein 7.5 Albumin 4.5 Globulin 3.0 Albumin/Globulin Ratio 1.5 Triglycerides 95 Cholesterol 146 LDL Cholesterol, Calc 80 HDL Cholesterol 47 Cholesterol/HDL Ratio 3.1 L Lipase 2079 H* TSH Ur Collection Type Clean Catch Urine Color Lt-Yellow Urine Clarity Clear Urine pH 7.5 H Ur Specific [place] 1.009 Urine Protein Negative Urine Glucose (UA) Negative Urine Ketones Negative Urine Blood Trace Urine Nitrite Negative Urine Bilirubin Negative Urine Urobilinogen (Auto) Negative Ur Leukocyte Esterase Positive Urine RBC 3 Urine WBC 15 H Ur Squamous Epith Cells < 1 Urine Bacteria Rare Urine HCG, Qual Negative 04/14/24 04:35 WBC 6.8 D RBC 4.36 Hgb 13.5 Hct 37.9 MCV 87 MCH 31.0 MCHC 35.6 RDW Std Deviation 38.9 Plt Count 229 Neut % (Auto) 67 Lymph % (Auto) 22 Sterling % (Auto) 10 Eos % (Auto) 1 Baso % (Auto) 0 Neut # (Auto) 4.5 Lymph # (Auto) 1.5 Sterling # (Auto) 0.6 Eos # (Auto) 0.1 Baso # (Auto) 0.0 Immature Gran # (Auto) 0.01 H Absolute Nucleated RBC 0.00 Immature Gran % 0 Nucleated RBC % 0 Sodium 138 Potassium 3.4 Chloride 105 Carbon Dioxide 25.6 Anion Gap 7 BUN 8 L Creatinine 0.8 Estim Creat Clear Calc 92.7 eGFR > 60 BUN/Creatinine Ratio 10 L Glucose 82 Calculated Osmolality 272 L Calcium 9.2 Corrected Calcium 9.2 Phosphorus 3.6 Magnesium 2.2 Total Bilirubin 1.8 H AST 344 H ALT 273 H Alkaline Phosphatase 149 H Lactate Dehydrogenase Total Protein 7.2 Albumin 4.6 Globulin 2.6 Albumin/Globulin Ratio 1.8 Triglycerides Cholesterol LDL Cholesterol, Calc HDL Cholesterol Cholesterol/HDL Ratio Lipase TSH 3.59 Ur Collection Type Urine Color Urine Clarity Urine pH Ur Specific [place] Urine Protein Urine Glucose (UA) Urine Ketones Urine Blood Urine Nitrite Urine Bilirubin Urine Urobilinogen (Auto) Ur Leukocyte Esterase Urine RBC Urine WBC Ur Squamous Epith Cells Urine Bacteria Urine HCG, Qual Quality Measures Quality Measures none Assessment & Plan Assessment Current Active Medications: Generic Name Dose Route Start Last Admin Trade Name Freq PRN Reason Stop Dose Admin Acetaminophen 650 mg 04/14/24 03:15 Acetaminophen 325 Mg Tablet PO 05/14/24 03:14 Q6H PRN PAIN SCALE 1-3 (mild Buspirone HCl 15 mg 04/14/24 09:00 04/14/24 09:59 Buspirone Hcl 5 Mg Tablet PO 05/14/24 08:59 15 mg QDAY MARTIN Administration Famotidine 20 mg 04/14/24 11:15 04/14/24 11:34 Famotidine 20 Mg Tablet PO 05/14/24 11:14 20 mg QDAY MARTIN Administration Gabapentin 100 mg 04/14/24 03:50 Gabapentin 100 Mg Capsule PO 05/14/24 05:59 TID PRN Leg Pain Sodium Chloride 1,000 mls @ 250 mls/hr 04/14/24 08:39 04/14/24 13:56 Ns IV 05/14/24 08:38 250 mls/hr .Q4H MARTIN Administration Ceftriaxone Sodium/Dextrose 50 mls @ 100 mls/hr 04/14/24 11:10 04/14/24 12:04 Rocephin/D5w 1gm Iv Premix IV 04/21/24 11:09 100 mls/hr QDAY MARTIN Administration Levothyroxine Sodium 50 mcg 04/14/24 06:00 04/14/24 06:18 Levothyroxine Sodium 25 Mcg Tablet PO 05/14/24 05:59 50 mcg ACBR MARTIN Administration Morphine Sulfate 1 mg 04/14/24 11:07 Morphine Sulf Inj 10 Mg/Ml Vial IVP 04/19/24 03:14 Q4HR PRN Pain Scale 4-10 (Severe Ondansetron HCl 4 mg 04/14/24 03:15 04/14/24 04:35 Ondansetron Inj 2 Mg/Ml Inj 2 Ml IV 05/14/24 03:14 4 mg Q6H PRN Administration NAUSEA OR VOMITING Protocol Sennosides 1 tab 04/14/24 03:15 Senna Tablet PO 05/14/24 03:14 QDAY PRN constipation Protocol Plan In summary: 38-year-old female admitted for acute pancreatitis. Started on IV fluids and pain control. Symptoms overall improving. MHx: Generalized anxiety disorder, depression, hypothyroidism, sciatica pain # Acute pancreatitis # Leukocytosis likely reactive Presented with 1 day of diffuse abdominal pain 2/3 criteria for acute pancreatitis: Pathopneumonic pain and lipase 2078 CT abdomen did not show pancreatitis [place] Criteria 2 (AST >250 and LDH >350); not severe pancreatitis Patient adequately resuscitated and started on fluid maintenance Denies history of alcohol use ? Continue fluid maintenance ? Pain control ? Physical therapy ? Advance diet as tolerated ? ZOFRAN for nausea # Symptomatic pyuria Admits to lower abdominal pain, urinary frequency but no dysuria UA positive leukocyte esterase, WBC, some bacteria ? Started CEFTRIAXONE 1 g daily # Transaminitis Admission AST 328, ALT 170, ALP 144, TB 1.6 Repeat AST 344, ALT 273, ALP 149, TB 1.8 despite aggressive hydration Ultrasound showed fatty liver, absent gallbladder, normal bile duct, normal pancreas size R Factor score of 5: Suggests mixed pattern of liver injury Hepatitis serology A, B, and C are negative this visit Denies alcohol use ? Ordered SANGEETA for autoimmune hepatitis ? Ordered serial serial ceruloplasmin ? Will continue to monitor LFTs ? Will likely need GI referral outpatient # Hypothyroidism TSH 3.5 this visit ? Resumed home LEVOTHYROXINE 50 mg AC BR #Generalized anxiety/depression #Hypothyroidism #Sciatic Pain/Neuralgia ? Resumed home BUSPIRONE 50 mg daily ? Resumed home GABAPENTIN 100 mg TID # Incidental findings The abdominal pelvis showed 20 mm fat-containing umbilical hernia, 20 mm left ovarian follicular cyst ? Recommended follow-up PCP outpatient Health maintenance Diet: Regular diet GI prophylaxis: FAMOTIDINE DVT prophylaxis: Ambulation Antibiotics: CEFTRIAXONE CODE STATUS: Full code Disposition: Pending improvement in symptoms Patient case was discussed with attending, Dr. Pooja SNEED and senior residents Dr. Pickering and Dr. Rodriguez. José Luis Jose DO PGYI Attending Provider Attestation/Addendum I reviewed labs, imaging, EKG, home medications and prior available records. Face to face evaluation was performed by me. I have personally examined the patient and discussed assessment and plan with the IM team. I reviewed the resident note and agree with the plan with exceptions as below. Acute pancreatitis: Possibly due to codeine use. Stop codeine. Management of nausea/pain as needed. Continue IV hydration. Monitor electrolytes and replete as needed. Trend WBC: Downtrending. Acute UTI: Started the patient on IV ceftriaxone. Follow-up urine culture. Transaminitis: Mild. Trend LFTs.
[2024-04-14 16:32] LABS: Hepatitis A Antibody IgM Non Reactive (Non React); Hepatitis B Core Antibody IgM Non Reactive (Non React); Hepatitis B Surface Antigen Non Reactive (Non React); Hepatitis C Antibody Non Reactive (Non React)
--- NOTE | 2024-04-14 20:30 | PC.NURSE ---
Pt called, c/o of having chest heaviness and feels head pressure. Pt appears anxious. While talking to the pt, she stated that she feels better now that I was there and not feel so alone. I offered if she wanted to be moved closer to the nurses station and she answered yes immediately. Pt moved to [id number] with all belongings. Pt stated I feel so much better now, thank you so much .
[2024-04-14] MEDS: ACETAMINOPHEN 325 MG TABLET 650 MG PO (21:15)
[2024-04-14] MEDS: GABAPENTIN 100 MG CAPSULE PO (21:15)
[2024-04-15] VITALS (7 sets, daily range): BP systolic 107–128; BP diastolic 67–79; PULSE 69–82; RESP 16–18; TEMP 36.5–37.1; O2SAT 97–100
[2024-04-15] MEDS: SODIUM CHLORIDE 0.9% 1000 ML 1,000 ML 250 ML IV ×3 (03:05→12:52)
[2024-04-15] MEDS: LEVOTHYROXINE SODIUM 25 MCG TABLET 50 MCG PO (05:33)
[2024-04-15] MEDS: ACETAMINOPHEN 325 MG TABLET 650 MG PO ×2 (05:49→11:22)
[2024-04-15 06:04] LABS: Basophils % (Auto) 1 % (0-2.5); Eosinophils % (Auto) 1 % (0-10); Hematocrit 31.6 % (36.0-46.0); Hemoglobin 11.1 g/dL (12.0-16.0); Immature Granulocytes % (Auto) 0 % (0-0); Lymphocytes # (Auto) 1.1 Thou/mm3 (1.0-4.8); Lymphocytes % (Auto) 33 % (10-50); Mean Corpuscular HGB Conc 35.1 g/dl (31.0-37.0); Mean Corpuscular Volume 88 fL (80-100); Monocytes # (Auto) 0.2 Thou/mm3 (0.0-0.8); Monocytes % (Auto) 7 % (0-12); Neutrophils % (Auto) 58 % (37-80); Nucleated Red Blood Cell % 0 /100 WBC (0); Platelet Count 160 Thou/mm3 (140-440); RDW Standard Deviation 39.6 fL (36.4-46.3); Red Blood Count 3.58 Miln/mm3 (4.00-5.20); White Blood Count 3.4 Thou/mm3 (3.6-11.0)
[2024-04-15 06:14] LABS: INR 1.1 (0.9-1.3); Prothrombin Time 12.4 Seconds (9.0-12.2)
[2024-04-15 06:28] LABS: Alanine Aminotransferase 175 U/L (10-49); Albumin, Serum 3.6 gm/dL (3.5-5.0); Albumin/Globulin Ratio 1.7 (1.2-2.2); Alkaline Phosphatase 140 U/L (46-116); Anion Gap 8 (7-16); Aspartate Amino Transferase 107 U/L (0-34); BUN/Creatinine Ratio 8 Ratio (12-20); Blood Urea Nitrogen < 5 mg/dL (9-23); Calcium 8.2 mg/dL (8.3-10.6); Calcium (Corrected) 8.5 mg/dL (8.5-10.1); Carbon Dioxide 20.8 mMol/L (20.0-31.0); Chloride 110 mMol/L (98-107); Creatinine (Component) 0.6 mg/dL (0.6-1.3); Estimated Creatinine Clearance 123.6 mL/min (>60); Globulin 2.1 gm/dL (2.3-3.5); Glucose 71 mg/dL (74-106); Osmolality,Calculated 272 (275-295); Potassium 3.7 mMol/L (3.4-5.1); Sodium 139 mMol/L (136-145); Total Protein 5.7 gm/dL (5.7-8.2); eGFR > 60 See Note
[2024-04-15] MEDS: FAMOTIDINE 20 MG TABLET PO (08:10)
[2024-04-15] MEDS: BusPIRone HCL 5 MG TABLET 15 MG PO (08:10)
[2024-04-15] MEDS: cefTRIAXone/D5w 1gm IV premix 50 ML IV (08:12)
--- NOTE | 2024-04-15 10:49 | ESPR_ITS ---
<Statement entered by Enrique Rodriguez MD - 04/15/24 17:31> Documentation for date of: 04/15/24 Subjective Subjective Interval history: No acute overnight events. Abdominal pain improving. Still feels nauseous with eating. Denies fever, chills, headaches, chest pain, sob, cough, other GI or urinary symptoms. Exam Vital Signs Temp Pulse Resp BP Pulse Ox O2 Del Method 97.7 F 77 18 108/67 97 Room Air 04/15/24 08:00 04/15/24 08:00 04/15/24 08:00 04/15/24 08:00 04/15/24 08:00 04/15/24 08:00 Narrative Exam GENERAL: Normal appearing adult female, in mild distress due to pain HEENT: NCAT.?ROMARIO. Oral mucosa is moist. Patent Nares NECK: Supple, nontender, no thyromegaly, no meningismus, no JVD, no step offs CHEST: Symmetrical, atraumatic, and with equal expansion, Nontender on palpation no deformity and no crepitus. CARDIOVASCULAR: RRR, no m/g/r LUNGS: CTAB, no w/r/r. Symmetrical chest rise. No intercostal subcostal retraction. ABDOMEN: Soft, flat, minor tender to palpation diffusely. No guarding/rebound tenderness/masses. +BS EXTREMITIES: Nontender.? No edema/cyanosis.?Moves all 4 extremities well, with full ROM and good CSM. SKIN: Warm and dry, no jaundice/rashes. MSK: No lumbar or midline, no CVA, no paraspinal muscle spasm or tenderness. NEURO: FREY x4, CN II-XII grossly intact.?No focal neurologic deficits. PSYCHIATRIC: Normal mood and affect, cooperative, no SI or HI or hallucinations. Objective Labs 04/16/24 04:08 04/16/24 04:08 Labs: Laboratory Results - last 24 hr 04/14/24 04/15/24 04:35 05:10 WBC 3.4 L D RBC 3.58 L Hgb 11.1 L D Hct 31.6 L MCV 88 MCH 31.0 MCHC 35.1 RDW Std Deviation 39.6 Plt Count 160 D Neut % (Auto) 58 Lymph % (Auto) 33 [place] % (Auto) 7 Eos % (Auto) 1 Baso % (Auto) 1 Neut # (Auto) 2.0 Lymph # (Auto) 1.1 [place] # (Auto) 0.2 Eos # (Auto) 0.0 Baso # (Auto) 0.0 Immature Gran # (Auto) 0.00 Absolute Nucleated RBC 0.00 Immature Gran % 0 Nucleated RBC % 0 PT 12.4 H INR 1.1 Sodium 139 Potassium 3.7 Chloride 110 H Carbon Dioxide 20.8 Anion Gap 8 BUN < 5 L Creatinine 0.6 Estim Creat Clear Calc 123.6 eGFR > 60 BUN/Creatinine Ratio 8 L Glucose 71 L Calculated Osmolality 272 L Calcium 8.2 L Corrected Calcium 8.5 Total Bilirubin 1.0 D AST 107 H ALT 175 H Alkaline Phosphatase 140 H Total Protein 5.7 Albumin 3.6 D Globulin 2.1 L Albumin/Globulin Ratio 1.7 Hepatitis A IgM Ab Non Reactive Hep Bs Antigen Non Reactive Hep B Core IgM Ab Non Reactive Hepatitis C Antibody Non Reactive Quality Measures Quality Measures none Assessment & Plan Assessment Current Active Medications: Generic Name Dose Route Start Last Admin Trade Name Freq PRN Reason Stop Dose Admin Acetaminophen 650 mg 04/14/24 03:15 04/15/24 05:49 Acetaminophen 325 Mg Tablet PO 05/14/24 03:14 650 mg Q6H PRN Administration PAIN SCALE 1-3 (mild Buspirone HCl 15 mg 04/14/24 09:00 04/15/24 08:10 Buspirone Hcl 5 Mg Tablet PO 05/14/24 08:59 15 mg QDAY MARTIN Administration Clorazepate 15 Mg 0 ea 04/15/24 19:00 Tablets PO 05/15/24 18:59 QDAY@1900 MARTIN Famotidine 20 mg 04/14/24 11:15 04/15/24 08:10 Famotidine 20 Mg Tablet PO 05/14/24 11:14 20 mg QDAY MARTIN Administration Gabapentin 100 mg 04/14/24 03:50 04/14/24 21:15 Gabapentin 100 Mg Capsule PO 05/14/24 05:59 100 mg TID PRN Administration Leg Pain Sodium Chloride 1,000 mls @ 250 mls/hr 04/14/24 08:39 04/15/24 08:11 Ns IV 05/14/24 08:38 250 mls/hr .Q4H MARTIN Administration Ceftriaxone Sodium/Dextrose 50 mls @ 100 mls/hr 04/14/24 11:10 04/15/24 08:12 Rocephin/D5w 1gm Iv Premix IV 04/21/24 11:09 100 mls/hr QDAY MARTIN Administration Levothyroxine Sodium 50 mcg 04/14/24 06:00 04/15/24 05:33 Levothyroxine Sodium 25 Mcg Tablet PO 05/14/24 05:59 50 mcg ACBR MARTIN Administration Morphine Sulfate 1 mg 04/14/24 11:07 04/14/24 16:28 Morphine Sulf Inj 10 Mg/Ml Vial IVP 04/19/24 03:14 1 mg Q4HR PRN Administration Pain Scale 4-10 (Severe Ondansetron HCl 4 mg 04/14/24 03:15 04/14/24 16:36 Ondansetron Inj 2 Mg/Ml Inj 2 Ml IV 05/14/24 03:14 4 mg Q6H PRN Administration NAUSEA OR VOMITING Protocol Sennosides 1 tab 04/14/24 03:15 Senna Tablet PO 05/14/24 03:14 QDAY PRN constipation Protocol Plan In summary: 38-year-old female admitted for acute pancreatitis. Started on IV fluids and pain control. Symptoms overall improving. MHx: Generalized anxiety disorder, depression, hypothyroidism, sciatica pain # Acute pancreatitis ? improving # Leukocytosis likely reactive ? resolved Presented with 1 day of diffuse abdominal pain 2/3 criteria for acute pancreatitis: Pathopneumonic pain and lipase 2078 CT abdomen did not show pancreatitis [place] Criteria 2 (AST >250 and LDH >350); not severe pancreatitis Patient adequately resuscitated and started on fluid maintenance Denies history of alcohol use Still has nausea, unable to tolerate soft diet, tolerating juices Nominal pain pain improving. ? Discontinued fluid maintenance, tolerating fluids ? Encouraging oral intake as tolerated ? Pain control ? Physical therapy ? Advance diet as tolerated ? ZOFRAN for nausea # Symptomatic pyuria Admits to lower abdominal pain, urinary frequency but no dysuria UA positive leukocyte esterase, WBC, some bacteria ? Continue CEFTRIAXONE 1 g daily # Transient transaminitis Likely ischemic hepatitis, overall LFTs improved and downtrending Admission AST 328, ALT 170, ALP 144, TB 1.6 Repeat AST 344, ALT 273, ALP 149, TB 1.8 despite aggressive hydration Currently AST 107, ALT 175, ALP 140, TB 1.0 Ultrasound showed fatty liver, absent gallbladder, normal bile duct, normal pancreas size R Factor score of 5: Suggests mixed pattern of liver injury Hepatitis serology A, B, and C are negative this visit Denies alcohol use ? Ordered SANGEETA for autoimmune hepatitis, pending ? Ordered serial serial ceruloplasmin, pending ? Will continue to monitor LFTs ? Will likely need GI referral outpatient # Hypothyroidism TSH 3.5 this visit ? Resumed home LEVOTHYROXINE 50 mg AC BR # Generalized anxiety/depression # Hypothyroidism # Sciatic Pain/Neuralgia ? Resumed home BUSPIRONE 50 mg daily ? Resumed home GABAPENTIN 100 mg TID # Migraine headaches History of migraine headaches, usually managed with IBUPROFEN Currently complains of migraine headache ? Given one-time dose of CELECOXIB 100 mg # GERD History of GERD, patient has FAMOTIDINE prescribed by PCP but currently not taking it, states she takes 3-4 tabs of TUMS nightly. ? Continued home FAMOTIDINE 20 mg daily ? Advised resuming FAMOTIDINE outpatient, limiting TUMS use ? Follow-up with PCP outpatient for GERD # Incidental findings The abdominal pelvis showed 20 mm fat-containing umbilical hernia, 20 mm left ovarian follicular cyst ? Recommended follow-up PCP outpatient Health maintenance Diet: Regular diet GI prophylaxis: FAMOTIDINE DVT prophylaxis: Ambulation Antibiotics: CEFTRIAXONE CODE STATUS: Full code Disposition: Pending improvement in symptoms Patient case was discussed with attending, Dr. Pooja SNEED and senior residents Dr. Pickering and Dr. Rodriguez. José Luis Jose, DO PGYI L Patient condition is much improved. She has minimal abdominal discomfort, mostly on consumption of solid food, but is tolerating liquids very well. Continuing IV fluids given slow transition to oral diet. On rocephin for positive UA. Transaminitis improving. IVF rate dropped, given >5L net positive since admission. F/U SANGEETA, ceruloplasmin. Will order LAKESHIA diet x1 for dinner and revaluate again. Patient examined and case discussed with the team including attending physician. Note reviewed, I agree with the care plan as documented. - Enrique Rodriguez MD, PGY 2 Attending Provider Attestation/Addendum I reviewed labs, imaging, EKG, home medications and prior available records. Face to face evaluation was performed by me. I have personally examined the patient and discussed assessment and plan with the IM team. I reviewed the resident note and agree with the plan with exceptions as below. Acute pancreatitis: Symptoms are improving. Possibly due to codeine use. Stopped codeine. Management of nausea/pain as needed. Advance diet as tolerated. Monitor electrolytes and replete as needed. Trend WBC: Downtrending. Acute UTI: Started the patient on IV ceftriaxone. Follow-up urine culture. Transaminitis: Mild. Trend LFTs: Downtrending.
--- NOTE | 2024-04-15 11:01 | PC.SS ---
Patient is alert/oriented. She resides with and family. Independent with ADL's. Admitted for Pacreatitis. Patient was engaged and pleasant. She confirmed she has a hx of anxiety and depression. She sees her p.c.p. for her mental health. PCP: [facility] with Dr. Walsh. Last appt. was last week. D/c address: [address] [place] [address] Family will provide d/c transportation. Alt medical decision maker: spouse, Arnoldo,
[2024-04-15] MEDS: CELECOXIB 100 MG CAPSULE PO (13:49)
[2024-04-15] MEDS: ONDANSETRON INJ 2 MG/ML INJ 2 ML 4 MG IV (18:13)
[2024-04-15] MEDS: MORPHINE SULF INJ 10 MG/ML VIAL IVP ×2 (18:41→22:32)
[2024-04-15] MEDS: CLORAZEPATE 15 MG PO (20:03)
[2024-04-16] VITALS (8 sets, daily range): BP systolic 100–109; BP diastolic 64–72; PULSE 59–75; RESP 16–19; TEMP 36.6–37.1; O2SAT 95–99; BMI 23.5
[2024-04-16] MEDS: LEVOTHYROXINE SODIUM 25 MCG TABLET 50 MCG PO (05:37)
[2024-04-16 05:42] LABS: Basophils % (Auto) 1 % (0-2.5); Eosinophils # (Auto) 0.1 Thou/mm3 (0.0-0.5); Eosinophils % (Auto) 2 % (0-10); Hematocrit 33.7 % (36.0-46.0); Hemoglobin 11.9 g/dL (12.0-16.0); Immature Granulocytes % (Auto) 0 % (0-0); Immature Granulocytes Auto 0.02 Thou/mm3 (0.00-0.00); Lymphocytes # (Auto) 1.4 Thou/mm3 (1.0-4.8); Lymphocytes % (Auto) 28 % (10-50); Mean Corpuscular HGB Conc 35.3 g/dl (31.0-37.0); Mean Corpuscular Hemoglobin 31.3 pg (25.0-35.0); Mean Corpuscular Volume 89 fL (80-100); Monocytes # (Auto) 0.4 Thou/mm3 (0.0-0.8); Monocytes % (Auto) 7 % (0-12); Neutrophils # (Auto) 3.1 Thou/mm3 (1.8-7.7); Neutrophils % (Auto) 61 % (37-80); Nucleated Red Blood Cell % 0 /100 WBC (0); Platelet Count 201 Thou/mm3 (140-440); RDW Standard Deviation 39.8 fL (36.4-46.3)
[2024-04-16 06:13] LABS: Alanine Aminotransferase 134 U/L (10-49); Albumin/Globulin Ratio 1.7 (1.2-2.2); Alkaline Phosphatase 145 U/L (46-116); Anion Gap 11 (7-16); Aspartate Amino Transferase 51 U/L (0-34); BUN/Creatinine Ratio 9 Ratio (12-20); Bilirubin,Total 0.9 mg/dL (0.3-1.2); Blood Urea Nitrogen 6 mg/dL (9-23); Carbon Dioxide 21.5 mMol/L (20.0-31.0); Chloride 107 mMol/L (98-107); Creatinine (Component) 0.7 mg/dL (0.6-1.3); Globulin 2.4 gm/dL (2.3-3.5); Glucose 72 mg/dL (74-106); Osmolality,Calculated 274 (275-295); Potassium 3.1 mMol/L (3.4-5.1); Sodium 139 mMol/L (136-145); Total Protein 6.4 gm/dL (5.7-8.2); eGFR > 60 See Note
[2024-04-16] MEDS: cefTRIAXone/D5w 1gm IV premix 50 ML IV (08:36)
[2024-04-16] MEDS: BusPIRone HCL 5 MG TABLET 15 MG PO (08:37)
[2024-04-16] MEDS: FAMOTIDINE 20 MG TABLET PO (08:37)
[2024-04-16] MEDS: ONDANSETRON INJ 2 MG/ML INJ 2 ML 4 MG IV ×3 (08:37→20:07)
[2024-04-16] MEDS: MORPHINE SULF INJ 10 MG/ML VIAL IVP ×4 (08:37→20:07)
[2024-04-16] MEDS: POTASSIUM CHLORIDE 20 mEq TABCR 40 MEQ PO (10:04)
--- NOTE | 2024-04-16 11:00 | CHAP ---
Patient was visited by the Spiritual Care Volunteer who prayed for them. (Volunteer was in the hospital from [facility]. 10:00-11:00)
--- NOTE | 2024-04-16 14:35 | PD.RESPRO ---
Documentation for date of: 04/16/24 Subjective Subjective Interval history: No acute overnight. Still experiencing abdominal pain and nausea, worse when eating. Denies fever, chills, headaches, chest pain, sob, cough, GI (other than nausea) or urinary symptoms. No bowel movement yet, however patient eating very little 2/2 nausea and abdominal pain. Exam Vital Signs Temp Pulse Resp BP Pulse Ox O2 Del Method 98.2 F 59 L 16 105/72 98 Room Air 04/16/24 11:50 04/16/24 11:50 04/16/24 11:50 04/16/24 11:50 04/16/24 11:50 04/16/24 11:50 Narrative Exam GENERAL: Normal appearing adult female, in mild distress due to pain HEENT: NCAT.?ROMARIO. Oral mucosa is moist. Patent Nares NECK: Supple, nontender, no thyromegaly, no meningismus, no JVD, no step offs CHEST: Symmetrical, atraumatic, and with equal expansion, Nontender on palpation no deformity and no crepitus. CARDIOVASCULAR: RRR, no m/g/r LUNGS: CTAB, no w/r/r. Symmetrical chest rise. No intercostal subcostal retraction. ABDOMEN: Soft, flat, mild tenderness to palpation diffusely. No guarding/rebound tenderness/masses. +BS EXTREMITIES: Nontender.? No edema/cyanosis.?Moves all 4 extremities well, with full ROM and good CSM. SKIN: Warm and dry, no jaundice/rashes. MSK: No lumbar or midline, no CVA, no paraspinal muscle spasm or tenderness. NEURO: FREY x4, CN II-XII grossly intact.?No focal neurologic deficits. PSYCHIATRIC: Normal mood and affect, cooperative, no SI or HI or hallucinations. Objective Labs 04/16/24 04:08 04/16/24 04:08 Labs: Laboratory Results - last 24 hr 04/16/24 04:08 WBC 5.0 D RBC 3.80 L Hgb 11.9 L Hct 33.7 L MCV 89 MCH 31.3 MCHC 35.3 RDW Std Deviation 39.8 Plt Count 201 D Neut % (Auto) 61 Lymph % (Auto) 28 [place] % (Auto) 7 Eos % (Auto) 2 Baso % (Auto) 1 Neut # (Auto) 3.1 Lymph # (Auto) 1.4 [place] # (Auto) 0.4 Eos # (Auto) 0.1 Baso # (Auto) 0.0 Immature Gran # (Auto) 0.02 H Absolute Nucleated RBC 0.00 Immature Gran % 0 Nucleated RBC % 0 Sodium 139 Potassium 3.1 L D Chloride 107 Carbon Dioxide 21.5 Anion Gap 11 BUN 6 L Creatinine 0.7 Estim Creat Clear Calc 106.0 eGFR > 60 BUN/Creatinine Ratio 9 L Glucose 72 L Calculated Osmolality 274 L Calcium 9.0 Corrected Calcium 9.0 Total Bilirubin 0.9 AST 51 H ALT 134 H Alkaline Phosphatase 145 H Total Protein 6.4 Albumin 4.0 Globulin 2.4 Albumin/Globulin Ratio 1.7 Quality Measures Quality Measures none Assessment & Plan Assessment Current Active Medications: Generic Name Dose Route Start Last Admin Trade Name Freq PRN Reason Stop Dose Admin Acetaminophen 650 mg 04/14/24 03:15 04/15/24 11:22 Acetaminophen 325 Mg Tablet PO 05/14/24 03:14 650 mg Q6H PRN Administration PAIN SCALE 1-3 (mild Buspirone HCl 15 mg 04/14/24 09:00 04/16/24 08:37 Buspirone Hcl 5 Mg Tablet PO 05/14/24 08:59 15 mg QDAY MARTIN Administration Clorazepate 15 Mg 0 ea 04/15/24 19:00 04/15/24 20:03 Tablets PO 05/15/24 18:59 1 tablet QDAY@1900 MARTIN Administration Famotidine 20 mg 04/14/24 11:15 04/16/24 08:37 Famotidine 20 Mg Tablet PO 05/14/24 11:14 20 mg QDAY MARTIN Administration Gabapentin 100 mg 04/14/24 03:50 04/14/24 21:15 Gabapentin 100 Mg Capsule PO 05/14/24 05:59 100 mg TID PRN Administration Leg Pain Ceftriaxone Sodium/Dextrose 50 mls @ 100 mls/hr 04/14/24 11:10 04/16/24 08:36 Rocephin/D5w 1gm Iv Premix IV 04/21/24 11:09 100 mls/hr QDAY MARTIN Administration Lactobacillus Rhamnosus 1 cap 04/16/24 21:00 Lactobacillus Rhamnosus 1 Cap PO 05/16/24 20:59 BID MARTIN Levothyroxine Sodium 50 mcg 04/14/24 06:00 04/16/24 05:37 Levothyroxine Sodium 25 Mcg Tablet PO 05/14/24 05:59 50 mcg ACBR MARTIN Administration Morphine Sulfate 1 mg 04/14/24 11:07 04/16/24 08:37 Morphine Sulf Inj 10 Mg/Ml Vial IVP 04/19/24 03:14 1 mg Q4HR PRN Administration Pain Scale 4-10 (Severe Ondansetron HCl 4 mg 04/14/24 03:15 04/16/24 08:37 Ondansetron Inj 2 Mg/Ml Inj 2 Ml IV 05/14/24 03:14 4 mg Q6H PRN Administration NAUSEA OR VOMITING Protocol Sennosides 1 tab 04/14/24 03:15 Senna Tablet PO 05/14/24 03:14 QDAY PRN constipation Protocol Plan In summary: 38-year-old female admitted for acute pancreatitis. Started on IV fluids and pain control. Symptoms overall improving. However, poor tolerance to soft diet, still experiencing abdominal pain and nausea with eating. Advancing diet as tolerated. MHx: Generalized anxiety disorder, depression, hypothyroidism, sciatica pain # Acute pancreatitis ? improving # Leukocytosis likely reactive ? resolved Presented with 1 day of diffuse abdominal pain 2/3 criteria for acute pancreatitis: Pathopneumonic pain and lipase 2078 CT abdomen did not show pancreatitis [place] Criteria 2 (AST >250 and LDH >350); not severe pancreatitis Patient adequately resuscitated and started on fluid maintenance Denies history of alcohol use Still has nausea, unable to tolerate soft diet, tolerating juices Nominal pain pain improving. ? Discontinued fluid maintenance, tolerating fluids ? Encouraging oral intake as tolerated ? Pain control ? Physical therapy ? Advance diet as tolerated ? ZOFRAN for nausea # Symptomatic pyuria Admits to lower abdominal pain, urinary frequency but no dysuria UA positive leukocyte esterase, WBC, some bacteria ? Continue CEFTRIAXONE 1 g daily # Transient transaminitis Likely ischemic hepatitis, admission AST 328, ALT 170, ALP 144, TB 1.6 Overall LFTs improved and downtrending Ultrasound showed fatty liver, absent gallbladder, normal bile duct, normal pancreas size R Factor score of 5: Suggests mixed pattern of liver injury Hepatitis serology A, B, and C are negative this visit Denies alcohol use ? Ordered SANGEETA for autoimmune hepatitis, pending ? Ordered serial serial ceruloplasmin, pending ? Will continue to monitor LFTs ? Will likely need GI referral outpatient # Hypothyroidism TSH 3.5 this visit ? Resumed home LEVOTHYROXINE 50 mg AC BR # Generalized anxiety/depression # Hypothyroidism # Sciatic Pain/Neuralgia ? Resumed home BUSPIRONE 50 mg HS ? Resumed home GABAPENTIN 100 mg TID HS # Migraine headaches History of migraine headaches, usually managed with IBUPROFEN Currently complains of migraine headache ? Given one-time dose of CELECOXIB 100 mg # GERD History of GERD, patient has FAMOTIDINE prescribed by PCP but currently not taking it, states she takes 3-4 tabs of TUMS nightly. ? Continued home FAMOTIDINE 20 mg daily ? Advised resuming FAMOTIDINE outpatient, limiting TUMS use ? Follow-up with PCP outpatient for GERD # Hypokalemia Likely 2/2 decreased oral intake. ? Repleted # Incidental findings The abdominal pelvis showed 20 mm fat-containing umbilical hernia, 20 mm left ovarian follicular cyst ? Recommended follow-up PCP outpatient Health maintenance Diet: Regular diet GI prophylaxis: FAMOTIDINE DVT prophylaxis: Ambulation Antibiotics: CEFTRIAXONE CODE STATUS: Full code Disposition: Pending improvement in symptoms Patient case was discussed with attending, Dr. Pooja SNEED and senior residents Dr. Pickering and Dr. Rodriguez. José Luis Jose DO PGYI Attending Provider Attestation/Addendum I reviewed labs, imaging, EKG, home medications and prior available records. Face to face evaluation was performed by me. I have personally examined the patient and discussed assessment and plan with the IM team. I reviewed the resident note and agree with the plan with exceptions as below. Acute pancreatitis: Symptoms are improving however she still has pain when trying to advance diet. Possibly due to codeine use. Stopped codeine. Management of nausea/pain as needed. Advance diet as tolerated. Monitor electrolytes and replete as needed. Trend WBC: Downtrending. Acute UTI: Started the patient on IV ceftriaxone. Follow-up urine culture. Transaminitis: Mild. Trend LFTs: Downtrending.
[2024-04-16] MEDS: GABAPENTIN 100 MG CAPSULE PO (16:50)
[2024-04-16] MEDS: ACETAMINOPHEN 325 MG TABLET 650 MG PO (16:50)
[2024-04-16] MEDS: CLORAZEPATE 15 MG PO (20:39)
[2024-04-16] MEDS: SENNA TABLET 1 TAB PO (20:39)
[2024-04-16] MEDS: LACTOBACILLUS RHAMNOSUS 1 CAP PO (20:39)
[2024-04-17] VITALS (9 sets, daily range): BP systolic 95–121; BP diastolic 60–80; PULSE 61–89; RESP 15–20; TEMP 36.5–36.6; O2SAT 98–100
[2024-04-17] MEDS: MORPHINE SULF INJ 10 MG/ML VIAL IVP ×3 (00:39→12:51)
[2024-04-17] MEDS: ONDANSETRON INJ 2 MG/ML INJ 2 ML 4 MG IV ×4 (00:39→20:55)
--- NOTE | 2024-04-17 01:16 | PC.NURSE ---
called Dr. Whitney regarding patient's abdominal pain 11/18, while it is relieved by morphine, pt states it now hurts when touching her abdomen and radiates to the right side of her back. Patient states she has to sleep on her left side. Will reassess patient's pain in one hour and to let MD know if she's in any pain.
[2024-04-17] MEDS: LEVOTHYROXINE SODIUM 25 MCG TABLET 50 MCG PO (05:57)
[2024-04-17] MEDS: BusPIRone HCL 5 MG TABLET 15 MG PO (08:07)
[2024-04-17] MEDS: FAMOTIDINE 20 MG TABLET PO (08:07)
[2024-04-17] MEDS: LACTOBACILLUS RHAMNOSUS 1 CAP PO ×2 (08:07→20:54)
[2024-04-17] MEDS: cefTRIAXone/D5w 1gm IV premix 50 ML IV (08:08)
[2024-04-17 10:41] LABS: Anion Gap 8 (7-16); BUN/Creatinine Ratio 9 Ratio (12-20); Blood Urea Nitrogen 7 mg/dL (9-23); Calcium 9.1 mg/dL (8.3-10.6); Chloride 107 mMol/L (98-107); Creatinine (Component) 0.8 mg/dL (0.6-1.3); Estimated Creatinine Clearance 89.3 mL/min (>60); Glucose 102 mg/dL (74-106); Osmolality,Calculated 275 (275-295); Potassium 3.6 mMol/L (3.4-5.1); Sodium 139 mMol/L (136-145); eGFR > 60 See Note
[2024-04-17] MEDS: SODIUM CHLORIDE 0.9% 1000 ML 1,000 ML 200 ML IV (11:15)
--- NOTE | 2024-04-17 12:03 | PD.RESPRO ---
Documentation for date of: 04/17/24 Subjective Subjective Interval history: Patient seen and examined at bedside this morning. No acute overnight events. Vitals, labs reviewed. Patient endorses significant abdominal pain when she eats applesauce and other foods while on diet, therefore was changed to liquid diet. She has noted that water, Ensure, Gatorade and grape juice do not cause severe pain when she takes them slowly. Pain is mainly in epigastrium and radiates to the back but is also viselike around her right flank. She states she had a right kidney infection approximately 20 years ago for which she needed antibiotics x 6 weeks. She also endorses having cloudy urine despite being on Rocephin, therefore we will repeat UA. Will also give another 1 L of NS and continue morphine for pain control. Exam Vital Signs Temp Pulse Resp BP Pulse Ox O2 Del Method 97.8 F 70 15 95/67 98 Room Air 04/17/24 08:00 04/17/24 08:00 04/17/24 08:00 04/17/24 08:00 04/17/24 08:00 04/17/24 08:00 Narrative Exam Gen: AAOx3, appears in mild distress from pain HEENT: NCAT, PERRLA, EOMI, MM dry CVS: normal S1, S2. RRR. No MRG Resp: CTA B/L. No rhonchi, rales, crackles or wheezing Abd: soft, TTP in epigastrium raidating to back, in R CVA, and suprapubic; non-distended. BS+ in all 4 quadrants. No bruising or ecchymoses noted in periumbilical/flanks MSK: Good ROM in BUE & BLE. No edema or rash. Neuro: CN II-XII grossly intact. Strength 5/5 in BUE & BLE. Objective Labs 04/18/24 04:24 04/18/24 04:24 Labs: Laboratory Results - last 24 hr 04/17/24 10:05 Sodium 139 Potassium 3.6 D Chloride 107 Carbon Dioxide 24.0 Anion Gap 8 BUN 7 L Creatinine 0.8 Estim Creat Clear Calc 89.3 eGFR > 60 BUN/Creatinine Ratio 9 L Glucose 102 Calculated Osmolality 275 Calcium 9.1 Quality Measures Quality Measures none Assessment & Plan Assessment Current Active Medications: Generic Name Dose Route Start Last Admin Trade Name Freq PRN Reason Stop Dose Admin Acetaminophen 650 mg 04/14/24 03:15 04/16/24 16:50 Acetaminophen 325 Mg Tablet PO 05/14/24 03:14 650 mg Q6H PRN Administration PAIN SCALE 1-3 (mild Buspirone HCl 15 mg 04/14/24 09:00 04/17/24 08:07 Buspirone Hcl 5 Mg Tablet PO 05/14/24 08:59 15 mg QDAY MARTIN Administration Clorazepate 15 Mg 0 ea 04/15/24 19:00 04/16/24 20:39 Tablets PO 05/15/24 18:59 1 tablet QDAY@1900 MARTIN Administration Famotidine 20 mg 04/14/24 11:15 04/17/24 08:07 Famotidine 20 Mg Tablet PO 05/14/24 11:14 20 mg QDAY MARTIN Administration Gabapentin 100 mg 04/14/24 03:50 04/16/24 16:50 Gabapentin 100 Mg Capsule PO 05/14/24 05:59 100 mg TID PRN Administration Leg Pain Ceftriaxone Sodium/Dextrose 50 mls @ 100 mls/hr 04/14/24 11:10 04/17/24 08:08 Rocephin/D5w 1gm Iv Premix IV 04/21/24 11:09 100 mls/hr QDAY MARTIN Administration Sodium Chloride 1,000 mls @ 200 mls/hr 04/17/24 11:06 04/17/24 11:15 Ns IV 04/17/24 16:05 200 mls/hr .Q5H ONE Administration Lactobacillus Rhamnosus 1 cap 04/16/24 21:00 04/17/24 08:07 Lactobacillus Rhamnosus 1 Cap PO 05/16/24 20:59 1 cap BID MARTIN Administration Levothyroxine Sodium 50 mcg 04/14/24 06:00 04/17/24 05:57 Levothyroxine Sodium 25 Mcg Tablet PO 05/14/24 05:59 50 mcg ACBR MARTIN Administration Morphine Sulfate 1 mg 04/14/24 11:07 04/17/24 08:06 Morphine Sulf Inj 10 Mg/Ml Vial IVP 04/19/24 03:14 1 mg Q4HR PRN Administration Pain Scale 4-10 (Severe Ondansetron HCl 4 mg 04/16/24 19:18 04/17/24 08:07 Ondansetron Inj 2 Mg/Ml Inj 2 Ml IV 05/14/24 03:14 4 mg Q4HR PRN Administration NAUSEA OR VOMITING Protocol Sennosides 1 tab 04/14/24 03:15 04/16/24 20:39 Senna Tablet PO 05/14/24 03:14 1 tab QDAY PRN Administration constipation Protocol Plan In summary: 38-year-old female admitted for acute pancreatitis. Started on IV fluids and pain control. Symptoms overall improving. However, poor tolerance to soft diet, still experiencing abdominal pain and nausea with eating. Advancing diet as tolerated. MHx: Generalized anxiety disorder, depression, hypothyroidism, sciatica pain # Acute pancreatitis # Leukocytosis likely reactive ? resolved Presented with 1 day of diffuse abdominal pain 2/3 criteria for acute pancreatitis: Pathopneumonic pain and lipase 2078 CT abdomen did not show pancreatitis [place] Criteria 2 (AST >250 and LDH >350); not severe pancreatitis Denies history of alcohol use Still has nausea, unable to tolerate soft diet, tolerating juices/gatorade/water/ensure => continue liquid diet Continues to endorse abdominal pain ? Ordered 1 L NS at 200 cc an hour; may need to repeat an additional 1 L ? Encouraging oral intake as tolerated ? Pain control with morphine 1 mg every 4 hours however has required additional breakthrough doses ? Physical therapy ? Advance diet as tolerated ? ZOFRAN for nausea # UTI Admits to lower abdominal pain, urinary frequency => noted cloudy urine on 04/17 UA positive leukocyte esterase, WBC, some bacteria Repeated UA, follow-up; will reflex to culture Patient also endorses history of right kidney infection in which she needed antibiotics for 6 weeks approximately 20 years ago Can consider renal ultrasound ? Continue CEFTRIAXONE 1 g daily # Transient transaminitis, downtrending Likely ischemic hepatitis, admission AST 328, ALT 170, ALP 144, TB 1.6 Overall LFTs improved and downtrending Ultrasound showed fatty liver, absent gallbladder, normal bile duct, normal pancreas size R Factor score of 5: Suggests mixed pattern of liver injury Hepatitis serology A, B, and C are negative this visit Denies alcohol use ? Ordered SANGEETA for autoimmune hepatitis, pending ? Ordered serial serial ceruloplasmin, pending ? Will continue to monitor LFTs ? Will likely need GI referral outpatient # Hypothyroidism TSH 3.5 this visit ? Resumed home LEVOTHYROXINE 50 mg AC BR # Generalized anxiety/depression # Hypothyroidism # Sciatic Pain/Neuralgia ? Resumed home BUSPIRONE 50 mg HS ? Resumed home GABAPENTIN 100 mg TID HS Resumed home clorazepate # Migraine headaches History of migraine headaches, usually managed with IBUPROFEN Currently complains of migraine headache ? Given one-time dose of CELECOXIB 100 mg # GERD History of GERD, patient has FAMOTIDINE prescribed by PCP but currently not taking it, states she takes 3-4 tabs of TUMS nightly. ? Continued home FAMOTIDINE 20 mg daily ? Advised resuming FAMOTIDINE outpatient, limiting TUMS use ? Follow-up with PCP outpatient for GERD # Hypokalemia, improved Likely 2/2 decreased oral intake. ? Repleted # Incidental findings The abdominal pelvis showed 20 mm fat-containing umbilical hernia, 20 mm left ovarian follicular cyst ? Recommended follow-up PCP outpatient Health maintenance Diet: Liquid diet GI prophylaxis: FAMOTIDINE DVT prophylaxis: Ambulation Antibiotics: CEFTRIAXONE CODE STATUS: Full code Disposition: Pending improvement in symptoms; requires IV pain control for pancreatitis Patient seen and care discussed with my attending Dr. Patton. Dionisio Pickering MD PGY-3 Attending Provider Attestation/Addendum I reviewed labs, imaging, EKG, home medications and prior available records. Face to face evaluation was performed by me. I have personally examined the patient and discussed assessment and plan with the IM team. I reviewed the resident note and agree with the plan with exceptions as below. Acute pancreatitis: Her pancreatitis is possibly due to codeine use. Stopped codeine. She has worsening pain. UTI needs to be ruled out. Ordered repeat UA. Management of nausea/pain as needed. Advance diet as tolerated. Monitor electrolytes and replete as needed. Trend WBC: Downtrending. Acute UTI: Started the patient on IV ceftriaxone. Follow-up urine culture. Transaminitis: Mild. Trend LFTs: Downtrending.
--- NOTE | 2024-04-17 13:33 | PC.NURSE ---
Received call from dietary stating that the director has said they cannot send the patient any more bottles of Gatorade. Dietary staff was notified that the Gatorade was a provider order and that it is the only thing the patient is able to tolerate. Per director of instructional technology patients are to utilize the oral re hydration in the nutrition room. was notified that dietary is refusing to send patient Gatorade.
--- NOTE | 2024-04-17 14:37 | PC.NURSE ---
Patient c/o pain to abdomen 11/18. Contacted who gave telephone order for 1mg morphine x1.
[2024-04-17] MEDS: MORPHINE SULF INJ 10 MG/ML VIAL IV (14:47)
[2024-04-17 15:03] LABS: Collection Type, Urine Clean Catch
--- NOTE | 2024-04-17 15:18 | PC.NURSE ---
Report given to Katheryn JENSEN
[2024-04-17 15:34] LABS: Bacteria,Urine Rare; Bilirubin,Urine Negative (Negative); Blood,Urine Negative (Negative); Clarity,Urine Clear (Clear/Hazy); Color,Urine Colorless (Lt Yel-Yel); Culture Indicated,Urine Not Indicated; Glucose, Urine Negative (Negative); Ketones,Urine Negative (Negative); Leukocyte Esterase,Urine Positive (Negative); Nitrite,Urine Negative (Negative); PH,Urine 5.5 (5.0-7.0); Protein,Urine Negative (Neg - Trace); RBC,Urine 1 /hpf (0-3); Specific Gravity,Urine 1.003 (1.001-1.035); Squamous Epithelial Cell,Urine 2 /hpf (0-5); Urobilinogen,Urine Negative mg/dL (0.0-1.0); WBC,Urine 2 /hpf (0-5)
[2024-04-17] MEDS: HYDROmorphone INJ 2 MG/ML VIAL 0.5 MG IVP ×2 (17:06→20:36)
[2024-04-17] MEDS: SODIUM CHLORIDE 0.9% 1000 ML 1,000 ML 125 ML IV (17:07)
[2024-04-17] MEDS: CLORAZEPATE 15 MG PO (18:13)
[2024-04-17] MEDS: SENNA TABLET 1 TAB PO (20:39)
[2024-04-18] VITALS (9 sets, daily range): BP systolic 105–117; BP diastolic 62–89; PULSE 60–84; RESP 14–20; TEMP 36.2–36.6; O2SAT 93–100
[2024-04-18] MEDS: HYDROmorphone INJ 2 MG/ML VIAL 0.5 MG IVP ×7 (00:11→21:13)
[2024-04-18] MEDS: ONDANSETRON INJ 2 MG/ML INJ 2 ML 4 MG IV ×2 (00:59→08:00)
[2024-04-18] MEDS: GABAPENTIN 100 MG CAPSULE PO (00:59)
[2024-04-18] MEDS: SODIUM CHLORIDE 0.9% 1000 ML 1,000 ML 125 ML IV (01:05)
[2024-04-18 05:56] LABS: Basophils % (Auto) 1 % (0-2.5); Eosinophils # (Auto) 0.1 Thou/mm3 (0.0-0.5); Eosinophils % (Auto) 2 % (0-10); Hematocrit 31.4 % (36.0-46.0); Hemoglobin 11.3 g/dL (12.0-16.0); Immature Granulocytes % (Auto) 0 % (0-0); Immature Granulocytes Auto 0.01 Thou/mm3 (0.00-0.00); Lymphocytes # (Auto) 1.6 Thou/mm3 (1.0-4.8); Lymphocytes % (Auto) 32 % (10-50); Mean Corpuscular Volume 89 fL (80-100); Monocytes # (Auto) 0.5 Thou/mm3 (0.0-0.8); Monocytes % (Auto) 9 % (0-12); Neutrophils # (Auto) 2.8 Thou/mm3 (1.8-7.7); Neutrophils % (Auto) 56 % (37-80); Nucleated Red Blood Cell % 0 /100 WBC (0); Platelet Count 186 Thou/mm3 (140-440); RDW Standard Deviation 39.7 fL (36.4-46.3); Red Blood Count 3.53 Miln/mm3 (4.00-5.20)
[2024-04-18 06:05] LABS: Alanine Aminotransferase 65 U/L (10-49); Albumin, Serum 3.9 gm/dL (3.5-5.0); Albumin/Globulin Ratio 4.3 (1.2-2.2); Alkaline Phosphatase 109 U/L (46-116); Anion Gap 7 (7-16); Aspartate Amino Transferase 18 U/L (0-34); BUN/Creatinine Ratio 7 Ratio (12-20); Bilirubin,Total 0.7 mg/dL (0.3-1.2); Blood Urea Nitrogen < 5 mg/dL (9-23); Calcium 8.8 mg/dL (8.3-10.6); Calcium (Corrected) 8.9 mg/dL (8.5-10.1); Carbon Dioxide 24.8 mMol/L (20.0-31.0); Chloride 108 mMol/L (98-107); Creatinine (Component) 0.7 mg/dL (0.6-1.3); Globulin 0.9 gm/dL (2.3-3.5); Glucose 83 mg/dL (74-106); Osmolality,Calculated 275 (275-295); Potassium 3.5 mMol/L (3.4-5.1); Sodium 140 mMol/L (136-145); Total Protein 4.8 gm/dL (5.7-8.2); eGFR > 60 See Note
[2024-04-18] MEDS: LEVOTHYROXINE SODIUM 25 MCG TABLET 50 MCG PO (06:19)
[2024-04-18] MEDS: FAMOTIDINE 20 MG TABLET PO (08:14)
[2024-04-18] MEDS: BusPIRone HCL 5 MG TABLET 15 MG PO (08:15)
[2024-04-18] MEDS: cefTRIAXone/D5w 1gm IV premix 50 ML IV (08:15)
[2024-04-18] MEDS: LACTOBACILLUS RHAMNOSUS 1 CAP PO ×2 (08:15→21:12)
--- NOTE | 2024-04-18 12:23 | ESPR_ITS ---
Documentation for date of: 04/18/24 Subjective Subjective Interval history: Complains of persistent abdominal pain overnight. Still feels nauseous with eating, although tolerating ENSURE okay. Persistent epigastric and right upper quadrant pain. States week urine stream without dysuria or hematuria. Denies fever, chills, headaches, chest pain, sob, cough, other GI symptoms or urinary symptoms. Exam Vital Signs Temp Pulse Resp BP Pulse Ox O2 Del Method 97.4 F 74 18 105/62 98 Room Air 04/18/24 12:04/18/24 12:04/18/24 12:04/18/24 12:04/18/24 12:00 04/18/24 12:00 Narrative Exam GENERAL: Normal appearing adult female, in mild distress due to pain HEENT: NCAT.?ROMARIO. Oral mucosa is moist. Patent Nares NECK: Supple, nontender, no thyromegaly, no meningismus, no JVD, no step offs CHEST: Symmetrical, atraumatic, and with equal expansion, Nontender on palpation no deformity and no crepitus. CARDIOVASCULAR: RRR, no m/g/r LUNGS: CTAB, no w/r/r. Symmetrical chest rise. No intercostal subcostal retraction. ABDOMEN: Soft, flat, mild tenderness to palpation diffusely. No guarding/rebound tenderness/masses. +BS EXTREMITIES: Nontender.? No edema/cyanosis.?Moves all 4 extremities well, with full ROM and good CSM. SKIN: Warm and dry, no jaundice/rashes. MSK: No lumbar or midline, no CVA, no paraspinal muscle spasm or tenderness. NEURO: FREY x4, CN II-XII grossly intact.?No focal neurologic deficits. PSYCHIATRIC: Normal mood and affect, cooperative, no SI or HI or hallucinations. Objective Labs 04/18/24 04:24 04/18/24 04:24 Labs: Laboratory Results - last 24 hr 04/17/24 04/18/24 13:40 04:24 WBC 5.0 RBC 3.53 L Hgb 11.3 L Hct 31.4 L MCV 89 MCH 32.0 MCHC 36.0 RDW Std Deviation 39.7 Plt Count 186 Neut % (Auto) 56 Lymph % (Auto) 32 [place] % (Auto) 9 Eos % (Auto) 2 Baso % (Auto) 1 Neut # (Auto) 2.8 Lymph # (Auto) 1.6 [place] # (Auto) 0.5 Eos # (Auto) 0.1 Baso # (Auto) 0.0 Immature Gran # (Auto) 0.01 H Absolute Nucleated RBC 0.00 Immature Gran % 0 Nucleated RBC % 0 Sodium 140 Potassium 3.5 Chloride 108 H Carbon Dioxide 24.8 Anion Gap 7 BUN < 5 L Creatinine 0.7 Estim Creat Clear Calc 102.0 eGFR > 60 BUN/Creatinine Ratio 7 L Glucose 83 Calculated Osmolality 275 Calcium 8.8 Corrected Calcium 8.9 Total Bilirubin 0.7 AST 18 ALT 65 H Alkaline Phosphatase 109 D Total Protein 4.8 L Albumin 3.9 Globulin 0.9 L Albumin/Globulin Ratio 4.3 H Ur Collection Type Clean Catch Urine Color Colorless A Urine Clarity Clear Urine pH 5.5 Ur Specific [place] 1.003 Urine Protein Negative Urine Glucose (UA) Negative Urine Ketones Negative Urine Blood Negative Urine Nitrite Negative Urine Bilirubin Negative Urine Urobilinogen (Auto) Negative Ur Leukocyte Esterase Positive Urine RBC 1 Urine WBC 2 Ur Squamous Epith Cells 2 Urine Bacteria Rare Ur Culture Indicated? Not Indicated Quality Measures Quality Measures none Assessment & Plan Assessment Current Active Medications: Generic Name Dose Route Start Last Admin Trade Name Freq PRN Reason Stop Dose Admin Acetaminophen 650 mg 04/14/24 03:15 04/16/24 16:50 Acetaminophen 325 Mg Tablet PO 05/14/24 03:14 650 mg Q6H PRN Administration PAIN SCALE 1-3 (mild Buspirone HCl 15 mg 04/14/24 09:00 04/18/24 08:15 Buspirone Hcl 5 Mg Tablet PO 05/14/24 08:59 15 mg QDAY MARTIN Administration Clorazepate 15 Mg 0 ea 04/15/24 19:00 04/17/24 18:13 Tablets PO 05/15/24 18:59 1 tablet QDAY@1900 MARTIN Administration Famotidine 20 mg 04/14/24 11:15 04/18/24 08:14 Famotidine 20 Mg Tablet PO 05/14/24 11:14 20 mg QDAY MARTIN Administration Gabapentin 100 mg 04/14/24 03:50 04/18/24 00:59 Gabapentin 100 Mg Capsule PO 05/14/24 05:59 100 mg TID PRN Administration Leg Pain Hydromorphone HCl 0.5 mg 04/17/24 16:45 04/18/24 11:56 Hydromorphone Inj 2 Mg/Ml Vial IVP 04/22/24 16:44 0.5 mg Q3HR PRN Administration PAIN SCALE 7-10 (Severe Ceftriaxone Sodium/Dextrose 50 mls @ 100 mls/hr 04/14/24 11:10 04/18/24 08:15 Rocephin/D5w 1gm Iv Premix IV 04/21/24 11:09 100 mls/hr QDAY MARTIN Administration Lactobacillus Rhamnosus 1 cap 04/16/24 21:00 04/18/24 08:15 Lactobacillus Rhamnosus 1 Cap PO 05/16/24 20:59 1 cap BID MARTIN Administration Levothyroxine Sodium 50 mcg 04/14/24 06:00 04/18/24 06:19 Levothyroxine Sodium 25 Mcg Tablet PO 05/14/24 05:59 50 mcg ACBR MARTIN Administration Ondansetron HCl 4 mg 04/16/24 19:18 04/18/24 08:00 Ondansetron Inj 2 Mg/Ml Inj 2 Ml IV 05/14/24 03:14 4 mg Q4HR PRN Administration NAUSEA OR VOMITING Protocol Sennosides 1 tab 04/14/24 03:15 04/17/24 20:39 Senna Tablet PO 05/14/24 03:14 1 tab QDAY PRN Administration constipation Protocol Plan In summary: 38-year-old female admitted for acute pancreatitis. Started on IV fluids and pain control. Symptoms overall improving. However, poor tolerance to soft diet, still experiencing abdominal pain and nausea with eating. Advancing diet as tolerated. MHx: Generalized anxiety disorder, depression, hypothyroidism, sciatica pain # Acute pancreatitis # Leukocytosis likely reactive ? resolved Presented with 1 day of diffuse abdominal pain 2/3 criteria for acute pancreatitis: Pathopneumonic pain and lipase 2078 CT abdomen did not show pancreatitis, however showed suspicious air new gallbladder Ultrasound absent gallbladder, normal CBD, normal pancreas, fatty liver disease [place] Criteria 2 (AST >250 and LDH >350); not severe pancreatitis Denies history of alcohol use Still has nausea, unable to tolerate soft diet, tolerating juices/gatorade/water/ensure => continue liquid diet Continues to endorse abdominal pain, ordered calprotectin to rule out Crohn's ? Ordered 1 L NS at 200 cc an hour; may need to repeat an additional 1 L ? Encouraging oral intake as tolerated ? Continue DILAUDID 0.5 mg q.3h. for pain ? Continue METOCLOPRAMIDE 10 mg q.6h., poor response to ZOFRAN ? Physical therapy ? Advance diet as tolerated ? Follow-up calprotectin # UTI Admits to lower abdominal pain, urinary frequency => noted cloudy urine on 04/17 UA positive leukocyte esterase, WBC, some bacteria Repeated UA, follow-up; will reflex to culture Patient also endorses history of right kidney infection in which she needed antibiotics for 6 weeks approximately 20 years ago Can consider renal ultrasound ? Continue CEFTRIAXONE 1 g daily ? Pending urine culture # Transient transaminitis ? improving Likely ischemic hepatitis, admission AST 328, ALT 170, ALP 144, TB 1.6 Overall LFTs improved and downtrending Ultrasound showed fatty liver, absent gallbladder, normal bile duct, normal pancreas size R Factor score of 5: Suggests mixed pattern of liver injury Hepatitis serology A, B, and C are negative this visit Denies alcohol use ? Ordered SANGEETA for autoimmune hepatitis, pending ? Ordered serial serial ceruloplasmin, pending ? Will continue to monitor LFTs ? Will likely need GI referral outpatient # Hypothyroidism TSH 3.5 this visit ? Resumed home LEVOTHYROXINE 50 mg AC BR # Generalized anxiety/depression # Hypothyroidism # Sciatic Pain/Neuralgia ? Resumed home BUSPIRONE 50 mg HS ? Resumed home GABAPENTIN 100 mg TID HS Resumed home clorazepate # Migraine headaches History of migraine headaches, usually managed with IBUPROFEN Currently complains of migraine headache ? Given one-time dose of CELECOXIB 100 mg # GERD History of GERD, patient has FAMOTIDINE prescribed by PCP but currently not taking it, states she takes 3-4 tabs of TUMS nightly. ? Continued home FAMOTIDINE 20 mg daily ? Advised resuming FAMOTIDINE outpatient, limiting TUMS use ? Follow-up with PCP outpatient for GERD # Hypokalemia, improved Likely 2/2 decreased oral intake. ? Repleted # Incidental findings The abdominal pelvis showed 20 mm fat-containing umbilical hernia, 20 mm left ovarian follicular cyst ? Recommended follow-up PCP outpatient Health maintenance Diet: Liquid diet GI prophylaxis: FAMOTIDINE DVT prophylaxis: Ambulation Antibiotics: CEFTRIAXONE CODE STATUS: Full code Disposition: Pending improvement in symptoms; requires IV pain control for pancreatitis Patient seen and care discussed with my attending Dr. Patton. José Luis Jose DO, PGY1 Attending Provider Attestation/Addendum I reviewed labs, imaging, EKG, home medications and prior available records. Face to face evaluation was performed by me. I have personally examined the patient and discussed assessment and plan with the IM team. I reviewed the resident note and agree with the plan with exceptions as below. Acute pancreatitis: Her pancreatitis is possibly due to codeine use. Stopped codeine. She has worsening pain. UTI needs to be ruled out. Ordered repeat UA. Management of nausea/pain as needed. Advance diet as tolerated. Monitor electrolytes and replete as needed. Trend WBC: Downtrending. Pain might also be related to constipation. Ordered enema. Monitor for bowel movement. Acute UTI: Started the patient on IV ceftriaxone. Follow-up urine culture. Transaminitis: Mild. Trend LFTs: Downtrending.
[2024-04-18] MEDS: bisacodyL 10 MG SUPP PR (16:08)
[2024-04-18] MEDS: CLORAZEPATE 15 MG PO (18:45)
[2024-04-18] MEDS: METOCLOPRAMIDE INJ 5 MG/ML VIAL 2 ML 10 MG IVP (21:12)
[2024-04-19] VITALS (9 sets, daily range): BP systolic 90–109; BP diastolic 57–76; PULSE 58–91; RESP 16–20; TEMP 36–36.9; O2SAT 97–99; BMI 23.5
[2024-04-19] MEDS: HYDROmorphone INJ 2 MG/ML VIAL 0.5 MG IVP ×7 (00:31→22:01)
[2024-04-19] MEDS: GABAPENTIN 100 MG CAPSULE PO (00:32)
[2024-04-19] MEDS: LEVOTHYROXINE SODIUM 25 MCG TABLET 50 MCG PO (06:21)
[2024-04-19] MEDS: METOCLOPRAMIDE INJ 5 MG/ML VIAL 2 ML 10 MG IVP ×3 (06:26→22:02)
[2024-04-19] MEDS: cefTRIAXone/D5w 1gm IV premix 50 ML IV (08:27)
[2024-04-19] MEDS: LACTOBACILLUS RHAMNOSUS 1 CAP PO ×2 (08:28→20:35)
[2024-04-19] MEDS: FAMOTIDINE 20 MG TABLET PO (08:28)
[2024-04-19] MEDS: BusPIRone HCL 5 MG TABLET 15 MG PO (08:28)
--- NOTE | 2024-04-19 13:28 | XR_ITS ---
Examination: CT abdomen with intravenous contrast CT pelvis with intravenous contrast 2-D coronal reconstructions 2-D sagittal reconstructions Date and time of exam:April 19, 2024 1246 hours Comparison April 13, 2024 INDICATIONS: Right upper abdominal pain beginning today, history pancreatitis. CTDI: vol (mGy) 8.17 DLP: (mGycm) 150 Technique: Multiple axial sections of the abdomen and pelvis have been obtained. 64 slice high-resolution scanner used. 3 mm axial sections have been obtained, post intravenous injection 60 cc [id number] 2-D sagittal, coronal reconstructions obtained. Low dose protocols were performed. One or more of the following dose reduction techniques were used; automated exposure control, adjustment of the mA and/or KV according to patient size, use of iterative reconstruction technique. Findings: No focal liver or splenic lesions Absent gallbladder No current pancreatic edema Aorta normal size No hydronephrosis Aorta normal size Small fat-containing inguinal hernia Normal appendix No bowel obstruction Involuting 22 mm left ovarian cyst Anteverted uterus Bladder intact Osseous structures intact IMPRESSION: No renal or ureteral calculi, no hydronephrosis Negative for pancreatitis Normal appendix 22 mm involuting left adnexal cyst
--- NOTE | 2024-04-19 14:24 | ESPR_ITS ---
<Statement entered by Dionisio Pickering MD - 04/20/24 08:27> Patient was seen and examined by me personally. I agree with most of the assessment and plan as discussed with the production internship physician, and my attending, Dr. Patton. Continues to have significant pain. Will repeat CT. Diet modified, patient tolerating liquids/ensure. Dionisio Pickering MD, PGY-3 Documentation for date of: 04/19/24 Subjective Subjective Interval history: No acute overnight events. Still having substantial nausea and abdominal pain, worse small meals. Having small bowel movements. Denies fever, chills, headaches, chest pain, sob, cough, other GI or urinary symptoms. Exam Vital Signs Temp Pulse Resp BP Pulse Ox O2 Del Method 96.8 F 76 18 101/57 L 98 Room Air 04/19/24 12:00 04/19/24 12:00 04/19/24 12:00 04/19/24 12:00 04/19/24 12:00 04/19/24 12:00 Narrative Exam GENERAL: Normal appearing adult female, in mild distress due to pain HEENT: NCAT.?ROMARIO. Oral mucosa is moist. Patent Nares NECK: Supple, nontender, no thyromegaly, no meningismus, no JVD, no step offs CHEST: Symmetrical, atraumatic, and with equal expansion, Nontender on palpation no deformity and no crepitus. CARDIOVASCULAR: RRR, no m/g/r LUNGS: CTAB, no w/r/r. Symmetrical chest rise. No intercostal subcostal retraction. ABDOMEN: Soft, flat, mild tenderness to palpation diffusely. No guarding/rebound tenderness/masses. +BS EXTREMITIES: Nontender.? No edema/cyanosis.?Moves all 4 extremities well, with full ROM and good CSM. SKIN: Warm and dry, no jaundice/rashes. MSK: No lumbar or midline, no CVA, no paraspinal muscle spasm or tenderness. NEURO: FREY x4, CN II-XII grossly intact.?No focal neurologic deficits. PSYCHIATRIC: Normal mood and affect, cooperative, no SI or HI or hallucinations. Objective Labs 04/18/24 04:24 04/18/24 04:24 Quality Measures Quality Measures none Assessment & Plan Assessment Current Active Medications: Generic Name Dose Route Start Last Admin Trade Name Freq PRN Reason Stop Dose Admin Acetaminophen 650 mg 04/14/24 03:15 04/16/24 16:50 Acetaminophen 325 Mg Tablet PO 05/14/24 03:14 650 mg Q6H PRN Administration PAIN SCALE 1-3 (mild Bisacodyl 10 mg 04/18/24 14:13 04/18/24 16:08 Bisacodyl 10 Mg Supp NE 10 mg QDAY PRN Administration CONSTIPATION Protocol Buspirone HCl 15 mg 04/14/24 09:00 04/19/24 08:28 Buspirone Hcl 5 Mg Tablet PO 05/14/24 08:59 15 mg QDAY MARTIN Administration Clorazepate 15 Mg 0 ea 04/15/24 19:00 04/18/24 18:45 Tablets PO 05/15/24 18:59 1 tablet QDAY@1900 MARTIN Administration Famotidine 20 mg 04/14/24 11:15 04/19/24 08:28 Famotidine 20 Mg Tablet PO 05/14/24 11:14 20 mg QDAY MARTIN Administration Gabapentin 100 mg 04/14/24 03:50 04/19/24 00:32 Gabapentin 100 Mg Capsule PO 05/14/24 05:59 100 mg TID PRN Administration Leg Pain Hydromorphone HCl 0.5 mg 04/17/24 16:45 04/19/24 11:00 Hydromorphone Inj 2 Mg/Ml Vial IVP 04/22/24 16:44 0.5 mg Q3HR PRN Administration PAIN SCALE 7-10 (Severe Ceftriaxone Sodium/Dextrose 50 mls @ 100 mls/hr 04/14/24 11:10 04/19/24 08:27 Rocephin/D5w 1gm Iv Premix IV 04/21/24 11:09 100 mls/hr QDAY MARTIN Administration Lactobacillus Rhamnosus 1 cap 04/16/24 21:00 04/19/24 08:28 Lactobacillus Rhamnosus 1 Cap PO 05/16/24 20:59 1 cap BID MARTIN Administration Levothyroxine Sodium 50 mcg 04/14/24 06:00 04/19/24 06:21 Levothyroxine Sodium 25 Mcg Tablet PO 05/14/24 05:59 50 mcg ACBR MARTIN Administration Metoclopramide HCl 10 mg 04/18/24 14:10 04/19/24 06:26 Metoclopramide Inj 5 Mg/Ml Vial 2 Ml IVP 05/18/24 14:09 10 mg Q6HR PRN Administration NAUSEA OR VOMITING Protocol Plan In summary: 38-year-old female admitted for acute pancreatitis. Started on IV fluids and pain control. Symptoms overall improving. However, poor tolerance to soft diet, still experiencing abdominal pain and nausea with eating. Advancing diet as tolerated. MHx: Generalized anxiety disorder, depression, hypothyroidism, sciatica pain # Acute pancreatitis # Leukocytosis likely reactive ? resolved Presented with 1 day of diffuse abdominal pain, 2/3 criteria for acute pancreatitis: Pathopneumonic pain and lipase 2078. CT abdomen did not show pancreatitis, however showed suspicious air new gallbladder. Ultrasound absent gallbladder, normal CBD, normal pancreas, fatty liver disease. Denies history of alcohol use. Persistently endorsing nausea and substantial abdominal pain with eating. Remains afebrile, no leukocytosis. Pending calprotectin to rule out Crohn's. Ordered CT scan to rule out other possible pathologies, given worsening pain. ? Ordered 1 L NS at 200 cc an hour; may need to repeat an additional 1 L ? Encouraging oral intake as tolerated ? Continue DILAUDID 0.5 mg q.3h. for pain ? Continue METOCLOPRAMIDE 10 mg q.6h., poor response to ZOFRAN ? Physical therapy ? Advance diet as tolerated ? Follow-up calprotectin ? Follow-up CT abdomen pelvis with contrast # UTI Admits to lower abdominal pain, urinary frequency => noted cloudy urine on 04/17 UA positive leukocyte esterase, WBC, some bacteria Repeated UA, follow-up; will reflex to culture Patient also endorses history of right kidney infection in which she needed antibiotics for 6 weeks approximately 20 years ago Can consider renal ultrasound ? Continue CEFTRIAXONE 1 g daily ? Pending urine culture # Transient transaminitis ? improving Likely ischemic hepatitis, admission AST 328, ALT 170, ALP 144, TB 1.6 Overall LFTs improved and downtrending Ultrasound showed fatty liver, absent gallbladder, normal bile duct, normal pancreas size R Factor score of 5: Suggests mixed pattern of liver injury Hepatitis serology A, B, and C are negative this visit Denies alcohol use ? Ordered SANGEETA for autoimmune hepatitis, pending ? Ordered serial serial ceruloplasmin, pending ? Will continue to monitor LFTs ? Will likely need GI referral outpatient # Hypothyroidism TSH 3.5 this visit ? Resumed home LEVOTHYROXINE 50 mg AC BR # Generalized anxiety/depression # Hypothyroidism # Sciatic Pain/Neuralgia ? Resumed home BUSPIRONE 50 mg HS ? Resumed home GABAPENTIN 300 mg HS Resumed home clorazepate # Migraine headaches History of migraine headaches, usually managed with IBUPROFEN Currently complains of migraine headache ? Given one-time dose of CELECOXIB 100 mg # GERD History of GERD, patient has FAMOTIDINE prescribed by PCP but currently not taking it, states she takes 3-4 tabs of TUMS nightly. ? Continued home FAMOTIDINE 20 mg daily ? Advised resuming FAMOTIDINE outpatient, limiting TUMS use ? Follow-up with PCP outpatient for GERD # Hypokalemia, improved Likely 2/2 decreased oral intake. ? Repleted # Incidental findings The abdominal pelvis showed 20 mm fat-containing umbilical hernia, 20 mm left ovarian follicular cyst ? Recommended follow-up PCP outpatient Health maintenance Diet: Liquid diet GI prophylaxis: FAMOTIDINE DVT prophylaxis: Ambulation Antibiotics: CEFTRIAXONE CODE STATUS: Full code Disposition: Pending improvement in symptoms; requires IV pain control for pancreatitis Patient seen and care discussed with my attending Dr. Patton. José Luis Jose DO, PGY1 Attending Provider Attestation/Addendum I reviewed labs, imaging, EKG, home medications and prior available records. Face to face evaluation was performed by me. I have personally examined the patient and discussed assessment and plan with the IM team. I reviewed the resident note and agree with the plan with exceptions as below. Acute pancreatitis: Her pancreatitis is possibly due to codeine use. Stopped codeine. She has worsening pain. UTI needs to be ruled out. Ordered repeat UA. Management of nausea/pain as needed. Advanced diet to low-fat diet. Monitor electrolytes and replete as needed. Trend WBC: Downtrending. Pain might also be related to constipation. Ordered enema and she had a bowel movement however the pain remained. Ordered repeat CT scan of the abdomen/pelvis. Acute UTI: Started the patient on IV ceftriaxone. Follow-up urine culture. Transaminitis: Mild. Trend LFTs: Downtrending.
[2024-04-19] MEDS: CLORAZEPATE 15 MG PO (18:43)
[2024-04-19] MEDS: GABAPENTIN 300 MG CAPSULE PO (20:35)
[2024-04-20] VITALS (8 sets, daily range): BP systolic 94–105; BP diastolic 55–68; PULSE 63–104; RESP 16–19; TEMP 36.3–36.9; O2SAT 96–98
[2024-04-20] MEDS: HYDROmorphone INJ 2 MG/ML VIAL 0.5 MG IVP ×2 (01:08→04:38)
[2024-04-20] MEDS: METOCLOPRAMIDE INJ 5 MG/ML VIAL 2 ML 10 MG IVP (04:38)
[2024-04-20] MEDS: LEVOTHYROXINE SODIUM 25 MCG TABLET 50 MCG PO (05:59)
[2024-04-20] MEDS: cefTRIAXone/D5w 1gm IV premix 50 ML IV (08:56)
[2024-04-20] MEDS: FAMOTIDINE 20 MG TABLET PO (08:56)
[2024-04-20] MEDS: BusPIRone HCL 5 MG TABLET 15 MG PO (08:56)
--- NOTE | 2024-04-20 11:22 | ESDS_ITS ---
Planned Discharge Date 04/20/24 DS: Providers Provider Date of admission: 04/14/24 03:15 Primary care physician: NIKKIE Burr Admitting Provider: Rafael Martin MD Attending Provider on Admission: Richard Patton MD Consults: 04/18/24 08:09 Referral Registered Dietitian Routine Comment: Attending Provider on DC: Richard Patton MD Discharging Provider: Richard Patton MD DS: Diagnosis Problem List Completed Was Problem List Reviewed/Reconciled?: Yes Hospital Course Hospital Course Hospital course: This is a 38-year-old female with no significantly relevant past medical history, admitted for acute pancreatitis with prolonged course of stay secondary to pain. Iinitial CT abdominal pelvis was negative for pancreatitis, however patient had symptoms and elevated lipase. Patient continued on IV fluid and pain control. Repeat CT was done prior to discharge which again demonstrated no signs of pancreatitis. Additionally, paola nt started on CEFTRIAXONE for symptomatic pyuria, final urine culture was negative. Patient was tolerating oral intake at the time of discharge. Patient stable to discharge to home. PATIENT INSTRUCTIONS: Follow-up with PCP within 1 week of discharge Continue METOCLOPRAMIDE 10 mg q.6 hours for nausea Continue TYLENOL 650 mg q.6 hours for pain Continue HYDROMORPHONE 0.5 mg BID for severe pain for 1 week (preferred over CODEINE for pancreatitis) Continue FAMOTIDINE 20 mg daily Continue LEVOTHYROXINE 50 mg with breakfast. Continue GABAPENTIN 300 mg at night daily Continue BUSPIRONE 15 mg daily Discontinue using IBUPROFEN/ADVIL Return to Emergency Room if symptoms persist, worsen, or new symptoms develop. ADMISSION DIAGNOSES: # Acute pancreatitis # Leukocytosis likely reactive ? resolved # UTI # Transient transaminitis ? improving # Hypothyroidism # Generalized anxiety/depression # Hypothyroidism # Sciatic Pain/Neuralgia # Migraine headaches # GERD # Hypokalemia, improved # Incidental findings: * CT abdominal pelvis showed 20 mm fat-containing umbilical hernia, 20 mm left ovarian follicular cyst Patient case was discussed with attending, Richard Patton MD and senior residents Dr. Pickering and Dr. Rodriguez. José Luis Jose DO PGYI Time Spent with Patient Time attestation: Total time spent providing and/or coordinating discharge services: Greater than 35 minutes. Exam Vital Signs Temp Pulse Resp BP Pulse Ox O2 Del Method 98.3 F 82 19 95/68 96 Room Air 04/20/24 07:55 04/20/24 07:55 04/20/24 07:55 04/20/24 07:55 04/20/24 07:55 04/20/24 07:55 Discharge Plan Plan Patient Disposition: HOME (Self Care) Prescriptions/Referrals Prescriptions/Med Rec: New metoclopramide HCl 10 mg tablet 10 mg PO Q6H PRN (Reason: nausea and vomiting) Qty: 14 0RF hydromorphone 2 mg tablet 0.5 mg PO TID MDD 0.75 PRN (Reason: pain) 6 Days Qty: 8 0RF Rx Instructions: Dont take tylenol/codeine while on p.o. hydromorphone Only use if pain >5/10 Continued acetaminophen 325 mg Tablet 325 mg PO QID PRN (Reason: Pain) famotidine 20 mg tablet 20 mg PO QDAY Patient Comments: take 1 tablet by mouth twice a day levothyroxine 50 mcg tablet 50 mcg PO QAM Patient Comments: take 1 tablet by mouth once daily clorazepate dipotassium 15 mg tablet 15 mg PO HS Patient Comments: take 1 tablet by mouth at bedtime gabapentin 100 mg capsule 300 mg PO HS Patient Comments: take 2 to 3 capsules by mouth AT NIGHT if needed BASED ON PAIN ACUITY buspirone 15 mg tablet 15 mg PO HS Patient Comments: take 1 tablet by mouth twice a day Discontinued acetaminophen-codeine 300-30 mg tablet 1 tab PO BID PRN (Reason: Pain) Patient Comments: take 1 tablet by mouth twice a day NEEDED FOR PAIN for 30 DAYS ibuprofen 400 mg tablet 400 mg PO Q4HR PRN (Reason: Pain) Patient Comments: take 1 tablet by mouth every 3 to 4 hours if needed for pain Referrals: Josi Walsh FNP [Primary Care Provider] - Patient/Caregiver Discharge Instructions Other Discharge Activity Instructions:: Follow-up with PCP within 1 week of discharge Continue METOCLOPRAMIDE 10 mg q.6 hours for nausea Continue TYLENOL 650 mg q.6 hours for pain Continue HYDROMORPHONE 0.5 mg BID for severe pain for 1 week Continue FAMOTIDINE 20 mg daily Continue LEVOTHYROXINE 50 mg with breakfast. Continue GABAPENTIN 300 mg at night daily Continue BUSPIRONE 15 mg daily Discontinue using IBUPROFEN/ADVIL Return to Emergency Room if symptoms persist, worsen, or new symptoms develop. Print Language: Hungarian Stand Alone Forms: Jaclyn Award Info., Patient Portal Info Letter Discharge Order Discharge Orders: Discharge (Routine); Ordered 04/20/24 Ordered By: José Luis Jose Quality Discharge Quality Measures VTE prophylaxis Attestestation Attestation I reviewed labs, imaging, EKG, home medications and prior available records. Face to face evaluation was performed by me. I have personally examined the patient and discussed assessment and plan with the IM team. I reviewed the resident note and agree with the plan with exceptions as below. Acute pancreatitis: Her pancreatitis is possibly due to codeine use. Stopped codeine. Her pain is improving and she is tolerating her diet. UTI needs to be ruled out. Ordered repeat UA. Management of nausea/pain as needed. Advanced diet to low-fat diet. Monitor electrolytes and replete as needed. Trend WBC: Downtrending. Pain might also be related to constipation. Ordered enema and she had a bowel movement however the pain remained. Ordered repeat CT scan of the abdomen/pelvis: Showed no acute disease. Okay to discharge. Continue low- fat diet upon discharge. Avoid alcohol. Acute UTI: She received a course of IV ceftriaxone. Transaminitis: Mild. Trend LFTs: Downtrending. Time spent is 40 minutes. More than 50% of the time was spent on patient education and coordination of care.
[2024-04-26 06:47] LABS: ANA Pattern NUCLEAR, HOMOGENEOUS; ANA Pattern NUCLEAR, SPECKLED; ANA Screen, IFA POSITIVE (NEGATIVE); Ceruloplasmin* 17 mg/dL (14-48)
[2024-04-26 06:55] LABS: Calprotectin, Stool* 11 mcg/g
== END 2024-04-20 13:05 | disposition home or self-care (01) | DRG 439 ==
LOC: SERX 04-14 04:18 → SERHOLD 04-14 04:20 → S3SX 04-14 08:03
PROVIDERS: Registered Nurse General Practice; Student in an Organized Health Care Education/Training Program; Admitting Provider Internal Medicine; Emergency Provider Emergency Medicine; PCP Nurse Practitioner; Visit Provider Student in an Organized Health Care Education/Training Program
DX: K85.90 Acute pancreatitis without necrosis or infection, unspecified (principal); N39.0 Urinary tract infection, site not specified; F41.1 Generalized anxiety disorder; F32.A Depression, unspecified; E03.9 Hypothyroidism, unspecified; Z90.49 Acquired absence of other specified parts of digestive tract; Z87.891 Personal history of nicotine dependence; K42.9 Umbilical hernia without obstruction or gangrene; N83.02 Follicular cyst of left ovary; M54.30 Sciatica, unspecified side; K76.0 Fatty (change of) liver, not elsewhere classified; G43.909 Migraine, unspecified, not intractable, without status migrainosus; K21.9 Gastro-esophageal reflux disease without esophagitis; E87.6 Hypokalemia
CPT/HCPCS: 36415; 74177; 76700; 80048; 80053; 80061; 80074; 81001; 81025; 82390; 83615; 83690; 83735; 83993; 84100; 84443; 85025; 85610; 86038; 86039; 87086; 93225; 96374; 96375; 96376; 99285; A4649; J0696; J2270; J2405; J2765; J3490; J7030; J7040; J7120; Q9967; A9270

== ENCOUNTER 2024-04-29 17:08 | Emergency (ER) | payer OTHER, MEDICAID, SELFPAY ==
[2024-04-29 17:08] VITALS: BMI 23.5
[2024-04-29 17:24] VITALS: BP 145/81; PULSE 73; RESP 18; TEMP 36.4; O2SAT 100
--- NOTE | 2024-04-29 17:43 | PD.EDRME ---
Rapid Medical Screening Exam RME Arrival date/time: 04/29/24 17:08 38-year-old female recently admitted for pancreatitis returns with upper abdominal pain with nausea no vomiting. I have greeted and performed a focused initial assessment of this patient. Initial appropriate labs ordered at this time. A comprehensive ED assessment and evaluation of the patient and analysis of all test and completion of medical decision making process will be conducted by additional ED provider. Chief Complaint: Abdominal Pain Time Seen by Provider: 04/29/24 17:24 Vital signs: Vital Signs Temperature 97.6 F 04/29/24 17:24 Pulse Rate 73 04/29/24 17:24 Respiratory Rate 18 04/29/24 17:24 Blood Pressure 145/81 H 04/29/24 17:24 Pulse Oximetry (%) 100 04/29/24 17:24 Oxygen Delivery Method Room Air 04/29/24 17:24
[2024-04-29 18:37] LABS: Basophils % (Auto) 1 % (0-2.5); Eosinophils # (Auto) 0.1 Thou/mm3 (0.0-0.5); Eosinophils % (Auto) 1 % (0-10); Hemoglobin 13.1 g/dL (12.0-16.0); Immature Granulocytes % (Auto) 0 % (0-0); Immature Granulocytes Auto 0.01 Thou/mm3 (0.00-0.00); Lymphocytes # (Auto) 1.5 Thou/mm3 (1.0-4.8); Lymphocytes % (Auto) 36 % (10-50); Mean Corpuscular HGB Conc 35.4 g/dl (31.0-37.0); Mean Corpuscular Hemoglobin 31.2 pg (25.0-35.0); Mean Corpuscular Volume 88 fL (80-100); Monocytes # (Auto) 0.3 Thou/mm3 (0.0-0.8); Monocytes % (Auto) 7 % (0-12); Neutrophils # (Auto) 2.3 Thou/mm3 (1.8-7.7); Neutrophils % (Auto) 55 % (37-80); Nucleated Red Blood Cell % 0 /100 WBC (0); Platelet Count 242 Thou/mm3 (140-440); RDW Standard Deviation 38.7 fL (36.4-46.3); White Blood Count 4.2 Thou/mm3 (3.6-11.0)
[2024-04-29 18:51] LABS: Collection Type, Urine Clean Catch
[2024-04-29 19:12] LABS: Alanine Aminotransferase 74 U/L (10-49); Albumin, Serum 4.8 gm/dL (3.5-5.0); Albumin/Globulin Ratio 1.8 (1.2-2.2); Alkaline Phosphatase 119 U/L (46-116); Anion Gap 6 (7-16); Aspartate Amino Transferase 63 U/L (0-34); BUN/Creatinine Ratio 13 Ratio (12-20); Bilirubin,Total 0.6 mg/dL (0.3-1.2); Blood Urea Nitrogen 10 mg/dL (9-23); Calcium 9.6 mg/dL (8.3-10.6); Calcium (Corrected) 9.6 mg/dL (8.5-10.1); Carbon Dioxide 28.4 mMol/L (20.0-31.0); Chloride 106 mMol/L (98-107); Creatinine (Component) 0.8 mg/dL (0.6-1.3); Estimated Creatinine Clearance 92.7 mL/min (>60); Globulin 2.6 gm/dL (2.3-3.5); Glucose 90 mg/dL (74-106); Lipase 51 U/L (12-53); Osmolality,Calculated 278 (275-295); Sodium 140 mMol/L (136-145); Total Protein 7.4 gm/dL (5.7-8.2); eGFR > 60 See Note
[2024-04-29 19:32] LABS: Bilirubin,Urine Negative (Negative); Blood,Urine Negative (Negative); Clarity,Urine Clear (Clear/Hazy); Color,Urine Colorless (Lt Yel-Yel); Glucose, Urine Negative (Negative); HCG Qualitative,Urine Negative; Ketones,Urine Negative (Negative); Leukocyte Esterase,Urine Positive (Negative); Nitrite,Urine Negative (Negative); Protein,Urine Negative (Neg - Trace); RBC,Urine 2 /hpf (0-3); Specific Gravity,Urine 1.004 (1.001-1.035); Squamous Epithelial Cell,Urine 6 /hpf (0-5); Urobilinogen,Urine Negative mg/dL (0.0-1.0); WBC,Urine 5 /hpf (0-5)
[2024-04-29 19:42] LABS: Amphetamine/Methamp Scrn,U Negative (Negative); Barbiturate Screen,Urine Negative (Negative); Benzodiazepines Screen,Urine Negative (Negative); Benzoylecgonine Screen, Ur Negative (Negative); Fentanyl Screen,Urine Negative (Negative); Opiate Screen,Urine Positive (Negative); THC Screen,Urine Negative (Negative)
--- NOTE | 2024-04-29 20:53 | PD.EDABDPN ---
ED Abdominal Pain RME/HPI General Chief Complaint: Abdominal Pain Stated complaint: RQU ABD PAIN X1 DAY Time seen by provider: 04/29/24 17:24 Arrival date/time: 04/29/24 17:08 RME / HPI RME / HPI narrative: 38-year-old female patient came in for evaluation regarding right upper quadrant pain. This been ongoing since earlier today, it comes and goes, described as crampy, severity moderate. Associated with nausea and vomiting. Patient denies any fever denies any other complaints. Patient is concerned that she might be having another episode of pancreatitis. Related Data Home Medications ?Medication ?Instructions ?Recorded ?Confirmed acetaminophen 325 mg tablet 325 mg PO QID PRN Pain 04/14/24 04/14/24 buspirone 15 mg tablet 15 mg PO HS 04/14/24 04/14/24 clorazepate dipotassium 15 mg 15 mg PO HS 04/14/24 04/14/24 tablet famotidine 20 mg tablet 20 mg PO QDAY 04/14/24 04/14/24 gabapentin 100 mg capsule 300 mg PO HS 04/14/24 04/14/24 levothyroxine 50 mcg tablet 50 mcg PO QAM 04/14/24 04/14/24 Previous Rx's ?Medication ?Instructions ?Recorded metoclopramide HCl 10 mg tablet 10 mg PO Q6H PRN nausea and 04/20/24 vomiting #14 tabs dicyclomine 20 mg tablet 20 mg PO QID PRN abdominal pain 04/29/24 #30 tabs metoclopramide HCl 10 mg tablet 10 mg PO Q6H PRN nausea and 04/29/24 (Reglan) vomiting #20 tabs Allergies Allergy/AdvReac Type Severity Reaction Status Date / Time ergotamine Allergy Severe Difficulty Verified 11/26/17 04:08 Breathing sumatriptan Allergy Severe Difficulty Verified 11/26/17 04:08 Breathing topiramate [From Topamax] Allergy Severe Difficulty Verified 11/26/17 04:07 Breathing Review of Systems Review of Systems Narrative Review of Systems: Review of system reviewed and within normal limits except mentioned in HPI ED Exam Narrative Physical exam: VITAL SIGNS: Reviewed. GENERAL APPEARANCE: Alert and interactive, follows commands, no acute distress, HEAD AND FACE: Non-traumatic. ENT: PERRL, pink conjunctivitis, eyelid no trauma, Mucous membrane moist. NECK: Supple, nontender, no nuchal rigidity. CHEST: No tenderness, no crepitus, no paradoxical movement, no retractions. LUNGS: Clear, well ventilated, symmetric, no rales, no wheezing, no ronchi, no stridor, good breath sounds bilaterally. HEART: Regular rate, regular rhythm, no murmur, no gallops. ABDOMEN: Soft, positive bowel sounds, nondistended, no guarding, nontender, no rebound, no masses, RECTAL: Deferred. GENITAL: Deferred. NEUROLOGICAL: Gross motor function intact sensory function intact, Appropriate for age. MUSCULOSKELETAL: low back nontender, full range of motion. EXTREMITIES: Nontender, full range of motion. SKIN: Color pink, dry, no rash, no lacerations, no abrasions, no contusions. LYMPHATICS: Deferred. Course Quality Measures none Orders Category Date Time Status CBC Stat Lab 04/29/24 18:10 Completed Comprehensive Metabolic Panel Stat Lab 04/29/24 18:10 Completed Drug Screen,Urine Stat Lab 04/29/24 18:39 Completed HCG Qualitative,Urine Stat Lab 04/29/24 18:39 Completed Lipase Stat Lab 04/29/24 18:10 Completed Urinalysis Stat Lab 04/29/24 18:39 Completed Vital Signs Vital signs: Vital Signs Temperature 97.6 F 04/29/24 17:24 Pulse Rate 73 04/29/24 17:24 Respiratory Rate 18 04/29/24 17:24 Blood Pressure 145/81 H 04/29/24 17:24 Pulse Oximetry (%) 100 04/29/24 17:24 Oxygen Delivery Method Room Air 04/29/24 17:24 Abdominal Pain MDM MDM Narrative MDM Narrative:: 38-year-old female patient came in for evaluation regarding right upper quadrant pain. This been ongoing since earlier today, it comes and goes, described as crampy, severity moderate. Associated with nausea and vomiting. Patient denies any fever denies any other complaints. Patient is concerned that she might be having another episode of pancreatitis. Laboratory workup all came back unremarkable. Patient's lipase today came back normal. Results discussed with the patient. Patient data External records reviewed:: None Clinical information provided by:: patient Social determinants that could affect healthcare access:: none Patient has the following chronic illnesses:: History of pancreatitis How is presenting disease/condition affected by chronic disease/condition?: exacerbated by Evaluation data The following diagnostics were reviewed and interpreted by me:: lab results Lab and/or radiology exams considered but not ordered:: None Interpretation Summary: Laboratory couple came back unremarkable. Medications / Prescriptions Medications or Prescriptions considered but not ordered:: None Medication administrations:: None Consultations Consultation(s) initiated? (list below): No Diagnosis Differential diagnosis abdominal pain: abdominal pain, pancreatitis and other (Right upper quadrant pain,) Most likely diagnosis given after review of the tests above:: Right upper quadrant pain Admission Indicated Admission indicated?: not indicated Explain why admission is indicated or not indicated:: Stable for discharge Admission Request Was there a request for admission?: No Disposition Plan Disposition Plan: Discharge Discharge Attestation Discharge Attestation: The patient and all family members were given an opportunity to ask questions and understood the discharge instructions. Discharge instructions specifically effects, indications for sooner follow up or return to the emergency department, and the expected course of current diagnosis. Patient condition: Stable Discharge Plan Plan Patient Disposition: HOME (Self Care) Disposition Comment: Stable Prescriptions/Referrals Prescriptions/Med Rec: New dicyclomine 20 mg tablet 20 mg PO QID PRN (Reason: abdominal pain) Qty: 30 0RF metoclopramide HCl [Reglan] 10 mg tablet 10 mg PO Q6H PRN (Reason: nausea and vomiting) Qty: 20 0RF No Action acetaminophen 325 mg Tablet 325 mg PO QID PRN (Reason: Pain) famotidine 20 mg tablet 20 mg PO QDAY Patient Comments: take 1 tablet by mouth twice a day levothyroxine 50 mcg tablet 50 mcg PO QAM Patient Comments: take 1 tablet by mouth once daily clorazepate dipotassium 15 mg tablet 15 mg PO HS Patient Comments: take 1 tablet by mouth at bedtime gabapentin 100 mg capsule 300 mg PO HS Patient Comments: take 2 to 3 capsules by mouth AT NIGHT if needed BASED ON PAIN ACUITY buspirone 15 mg tablet 15 mg PO HS Patient Comments: take 1 tablet by mouth twice a day metoclopramide HCl 10 mg tablet 10 mg PO Q6H PRN (Reason: nausea and vomiting) Qty: 14 0RF Referrals: Josi Walsh FNP [Primary Care Provider] - In 1 week Problem List Clinical Impression: Abdominal pain Patient/Caregiver Discharge Instructions Discharge Activity: activity as tolerated Education Materials: Abdominal Pain Additional Instructions: Thank you for the opportunity for serving you today. You are stable for discharged . You are advised to: Follow-up with your PCP in 1 to 2 days Return to ED for worsening of symptoms Increase oral fluids Take medication as prescribed Print Language: Bahraini Stand Alone Forms: Jaclyn Award Info., Patient Portal Info Letter PA/TECHNICAL SALES SUPPORT SPECIALIST Supervising Physician PA/TECHNICAL SALES SUPPORT SPECIALIST Supervising Physician: MD Gretel
== END 2024-04-29 21:05 | disposition home or self-care (01) ==
PROVIDERS: Nurse Practitioner Primary Care; Physician Assistant; Emergency Provider Emergency Medicine; PCP Nurse Practitioner
DX: R10.11 Right upper quadrant pain (principal)
CPT/HCPCS: 36415; 80053; 80307; 81001; 81025; 83690; 85025; 99283

== ENCOUNTER → 2024-06-11 | Outpatient (CLI) | payer OTHER, MEDICAID, SELFPAY ==
--- NOTE | 2024-06-11 15:00 | XR_ITS ---
Examination: Abdomen sonogram, complete Date and time of exam: June 11, 2024 1436 hours INDICATIONS: Diagnosis fatty liver. Technique: Multiple real-time grayscale transabdominal sonographic images of the abdomen have been obtained. Findings: Absent gallbladder Normal common bile duct 0.4 cm Pancreatic head 2.5 cm Aorta not enlarged Liver 14.6 cm fatty infiltration no focal liver lesions Normal hepatopedal portal venous flow Patent IVC Right kidney 11.1 x 4.4 x 5.1 cm cortex 1.6 cm Left kidney 10.6 x 4.1 x 5.2 cm renal cortex 1.6 cm No hydronephrosis Spleen 10.3 cm IMPRESSION: Absent gallbladder Fatty liver, no focal liver lesions
== END | disposition home or self-care (01) ==
PROVIDERS: PCP Nurse Practitioner; Referring Provider Nurse Practitioner; Visit Provider Nurse Practitioner
DX: K76.0 Fatty (change of) liver, not elsewhere classified (principal); Z90.49 Acquired absence of other specified parts of digestive tract
CPT/HCPCS: 76700